=== PATIENT | female | born 1950 | race Caucasian/White ===

== ENCOUNTER 2022-06-01 19:39 | Inpatient (IN) ==
[2022-06-01] MEDS ORDERED: IOPAMIDOL 100 ML BOTTLE IV ONE (19:40)
[2022-06-01] MEDS ORDERED: diphenhydrAMINE 50 MG/ML VIAL IV ONE (20:47)
[2022-06-01 21:23] LABS: POC Calcium, Ionized 1.14 (1.16-1.32); POC Creatinine 1.5 (0.6-1.2); POC Potassium 3.8 (3.3-5.1)
[2022-06-01] MEDS ORDERED: ALBUTEROL SULFATE 2.5 MG/3 ML NEBULIZER NEB ONE (21:36)
[2022-06-01] MEDS ORDERED: IPRATROPIUM/ALBUTEROL 3 ML AMPUL.NEB NEB ONE (21:36)
[2022-06-01 21:42] LABS: Basophils # (Auto) 0.13 K/mcL (0.00-0.30); Eosinophils # (Auto) 0.36 K/mcL (0.00-0.70); Eosinophils % (Auto) 2.7 % (0.0-7.0); Hematocrit 27.4 % (34.1-44.9); Hemoglobin 8.7 g/dL (11.2-15.7); Lymphocytes % (Auto) 8.2 % (15.5-49.0); Mean Cell Volume 90.1 fL (80.0-100.0); Mean Corpuscular HGB Conc 31.8 g/dL (31.0-36.0); Mean Platelet Volume 10.7 fL (8.8-12.5); Monocytes # (Auto) 1.52 K/mcL (0.10-0.90); Monocytes % (Auto) 11.3 % (1.0-12.0); Neutrophils % (Auto) 75.9 % (38.0-78.0); Platelet Count 400 K/mcL (140-440); RBC 3.04 M/mcL (3.59-5.38); Red Cell Distribution Width 14.7 % (11.5-14.5); WBC 13.5 K/mcL (4.5-11.0)
[2022-06-01] MEDS ORDERED: methylPREDNISolone SOD SUCC 125 MG/2 ML VIAL IV ONE (22:05)
[2022-06-01] MEDS ORDERED: 0.9 % SODIUM CHLORIDE 500 ML IV ONE (22:07)
[2022-06-01] MEDS ORDERED: NALOXONE HCL 0.4 MG/ML VIAL IV ONE (22:13)
[2022-06-01] MEDS ORDERED: EPINEPHrine 1 MG/ML VIAL NEB ONE (22:18)
[2022-06-01] MEDS ORDERED: LORazepam 2 MG/ML VIAL IV ONE ×2 (22:28→22:47)
--- NOTE | 2022-06-01 23:04 | Emergency Department Note ---
SOB HPI General Chief Complaint: Shortness of Breath/Dyspnea Stated Complaint: SOB Time Seen by Provider: 06/01/22 19:43 Source: patient Mode of arrival: ambulatory Limitations: no limitations History of Present Illness HPI Narrative: Narrative: Patient presents to the ED with complaints of shortness of breath. She states she feels she cannot get a full deep breath in. She arrived via EMS on 3 L oxygen via nasal cannula. She denies cough, sputum production, cardiac chest pain, heart palpitations, hemoptysis, pain rating to her left arm or neck, nausea or vomiting. Patient states that she has been here several times the last couple days for back pain. She states she does not have any back pain at this time but she is just short of breath. Patient denies any other alleviating or aggravating factors. Related Data Home Medications Medication Instructions Recorded Confirmed amiodarone 100 mg tablet 100 mg PO HS 08/14/18 11/08/20 apixaban 2.5 mg tablet 5 mg PO BID 08/14/18 11/08/20 atorvastatin 80 mg tablet 80 mg PO HS 08/14/18 11/08/20 bupropion HCl 300 mg 24 hr tablet, 300 mg PO DAILY 08/14/18 04/30/19 extended release levothyroxine 100 mcg tablet 100 mcg PO DAILY 08/14/18 04/30/19 losartan 50 mg tablet 50 mg PO DAILY 08/14/18 04/30/19 montelukast 10 mg tablet 10 mg PO HS 08/14/18 11/08/20 nortriptyline 50 mg capsule 50 mg PO HS 08/14/18 11/08/20 spironolactone 25 mg tablet 25 mg PO DAILY 08/14/18 11/08/20 buprenorphine 8 mg-naloxone 2 mg 0.5 tab sublingual TID 10/02/18 11/08/20 sublingual tablet amoxicillin 875 mg-potassium 1 tab PO BID 04/30/19 04/30/19 clavulanate 125 mg tablet baclofen 10 mg tablet 10 mg PO TIDP PRN Pain 04/30/19 04/30/19 bupropion HCl (smoking deter) 150 150 mg PO DAILY 04/30/19 04/30/19 mg tablet,12 hr sustained-release(smoking deterrent) buspirone 5 mg tablet 5 mg PO BID 04/30/19 04/30/19 cefdinir 300 mg capsule 300 mg PO BID 04/30/19 04/30/19 clonidine HCl 0.1 mg tablet 0.1 mg PO DAILYP PRN Hypertension 04/30/19 04/30/19 duloxetine 60 mg capsule,delayed 60 mg PO DAILY 04/30/19 11/08/20 release sprinkle hydrocodone 7.5 mg-acetaminophen 1 tab PO Q6HP PRN Pain 04/30/19 04/30/19 325 mg tablet ibuprofen 600 mg tablet 600 mg PO Q6HP PRN Pain 04/30/19 04/30/19 ketorolac 0.4 % eye drops 1 gtt BOTH EYES PRN PRN Dry Eyes 04/30/19 04/30/19 lisinopril 10 mg tablet 10 mg PO DAILY 04/30/19 04/30/19 neomycin 3.5 mg/g-polymyxin B 1 dose BOTH EYES QPM PRN Dry Eyes 04/30/19 04/30/19 10,000 unit/g-dexameth 0.1 % eye oint omeprazole 20 mg capsule,delayed 20 mg PO DAILY 04/30/19 11/08/20 release ropinirole 0.25 mg tablet 0.25 mg PO QHS 04/30/19 04/30/19 torsemide 20 mg tablet 20 mg PO DAILY 04/30/19 04/30/19 trazodone 150 mg tablet 150 mg PO HS 04/30/19 04/30/19 amlodipine 5 mg tablet 5 mg PO QDAY 11/08/20 11/08/20 buspirone 7.5 mg tablet 7.5 mg PO BID 11/08/20 11/08/20 celecoxib 200 mg capsule 200 mg PO BID PRN 11/08/20 11/08/20 docusate sodium 100 mg capsule 100 mg PO QDAY PRN 11/08/20 11/08/20 fluticasone propionate 50 1 spray intranasal QDAY 11/08/20 11/08/20 mcg/actuation nasal spray,suspension furosemide 20 mg tablet 20 mg PO QDAY 11/08/20 11/08/20 hydroxyzine HCl 50 mg tablet See Rx Instructions PO Q8HP PRN 11/08/20 11/08/20 Anxiety levothyroxine 100 mcg tablet 100 mcg PO QDAY 11/08/20 11/08/20 loratadine 10 mg tablet 10 mg PO QDAY 11/08/20 11/08/20 memantine 5 mg tablet 10 mg PO BID 11/08/20 11/08/20 minoxidil 2 % topical solution 1 ml topical BID 11/08/20 11/08/20 ondansetron HCl 4 mg tablet 4 mg PO Q8H PRN 11/08/20 11/08/20 psyllium husk [Fiber (psyllium See Rx Instructions PO .COMPLEX 11/08/20 11/08/20 husk)] ropinirole 2 mg tablet 2 mg PO QHS 11/08/20 11/08/20 sennosides 8.6 mg tablet (senna) See Rx Instructions PO QDAY 11/08/20 11/08/20 sodium chloride 1 gram tablet 1,000 mg PO QDAY 11/08/20 11/08/20 Previous Rx's Medication Instructions Recorded hydrocodone 5 mg-acetaminophen 325 1 tab PO Q4H PRN pain #10 tabs 05/22/22 mg tablet baclofen 10 mg tablet 10 mg PO TID PRN spasms #30 tabs 06/01/22 lidocaine 5 % topical patch 1 patch topical QDAY #15 ea 06/01/22 (Lidoderm) Allergies Allergy/AdvReac Type Severity Reaction Status Date / Time azithromycin [From Zithromax] Allergy Severe Swelling Verified 06/01/22 08:51 pregabalin [From Lyrica] Allergy Severe Unknown Verified 06/01/22 08:51 flu vaccine AdvReac Other Uncoded 08/14/18 07:49 Review of Systems ROS ROS Narrative: Narrative: PFSH Narrative Patient History Narrative: Narrative: Medical/Surgical/Family History All Active Problems (Updated 06/02/22 @ 01:59 by Joseph Ramirez MD) CHF exacerbation (Acute) Restless legs (Acute) Right rib fracture (Acute) Lumbar back pain (Acute) Low back pain (Acute) Acute respiratory failure with hypoxia (Acute) Pleural effusion on right (Acute) Left lower lobe pneumonia (Acute) Sepsis (Acute) Chronic pain (Chronic) Pain in thoracic spine (Chronic) Disc degeneration, 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, lumbar region (Chronic) Dysphagia (Chronic) History of shingles (Chronic) History of pulmonary embolism (Chronic) Opioid dependence in remission (Chronic) Onychomycosis of toenail (Chronic) Primary osteoarthritis, right shoulder (Chronic) Osteopenia (Chronic) Raynaud's syndrome without gangrene (Chronic) Restless legs (Chronic) Frequent falls (Chronic) Generalized anxiety disorder (Chronic) Major depressive disorder (Chronic) Chronic insomnia (Chronic) Sleep apnea (Chronic) Anemia (Chronic) Hyponatremia (Chronic) Tinnitus, bilateral (Chronic) Essential hypertension (Chronic) Paroxysmal atrial fibrillation (Chronic) Chronic congestive heart failure (Chronic) Alternating constipation and diarrhea (Chronic) Bilateral lower extremity edema (Chronic) Memory deficit (Chronic) Arthritis of hand (Chronic) Other alopecia areata (Chronic) Other allergic rhinitis (Chronic) Morbid obesity due to excess calories (Chronic) Body mass index 40.0-44.9, adult (Chronic) Benign essential tremor (Chronic) Lumbar radiculopathy (Chronic) Congestive heart failure (Chronic) Hypothyroidism (Chronic) H/O partial thyroidectomy (Chronic) Hyperlipidemia (Chronic) Low back pain (Chronic) Medication adverse effect (Chronic) Hypotension (Chronic) Hypokalemia (Chronic) Exacerbation of chronic back pain (Chronic) UTI (urinary tract infection) (Chronic) Strain of lumbar region (Chronic) Medical History Alternating constipation and diarrhea Anemia Arthritis of hand Benign essential tremor Bilateral lower extremity edema Body mass index 40.0-44.9, adult Chronic congestive heart failure Chronic insomnia Chronic pain Congestive heart failure Disc degeneration, lumbosacral Dysphagia Essential hypertension Exacerbation of chronic back pain Frequent falls Generalized anxiety disorder History of pulmonary embolism History of shingles Hyperlipidemia Hypokalemia Hyponatremia Hypotension Hypothyroidism Low back pain Lumbar radiculopathy Major depressive disorder Medication adverse effect Memory deficit Morbid obesity due to excess calories Onychomycosis of toenail Opioid dependence in remission Osteopenia Other allergic rhinitis Other alopecia areata Pain in thoracic spine Paroxysmal atrial fibrillation Primary osteoarthritis, right shoulder Raynaud's syndrome without gangrene Restless legs Sleep apnea Spondylosis without myelopathy or radiculopathy, lumbar region Strain of lumbar region Tinnitus, bilateral UTI (urinary tract infection) Surgical History H/O partial thyroidectomy History of bilateral knee replacement History of foot surgery Toes straightened right and left foot History of repair of right rotator cuff History of surgery Right achilles tendon History of surgery 03/21 RFTC Bilat L3-S1 w/sed 03/30/1802/17 MBB #2 Bilat L3-S1 w/sed 02/02/1801/18 MBB #1 Bilat L3-S1 w/sed 01/01/1810/18 TF TAPAN #1 L5-S1 w/sed 10/15/2017 History of tonsillectomy Family History Mother Heart disease Breast cancer Father , in his 50's from alcoholism Alcoholism Social History Smoking Status: Former smoker Alcohol Intake Frequency: does not drink Substance Use: does not use Exam Narrative Narrative: Narrative: General Limitations: no limitations General appearance: Present appears intoxicated, grimacing and in distress Head Head: Present normocephalic and normal inspection Eye Eye: Present PERRL and EOMI ENT ENT: Present normal oropharynx and mucous membranes moist Chest Chest: Present normal inspection; Absent tenderness Respiratory Respiratory: Present respiratory distress, wheezes and accessory muscle use Cardiovascular Cardiovascular: Present regular rate and normal rhythm Adbominal Abdominal: Present soft; Absent tenderness Extremities Extremities: Present normal inspection and normal capillary refill Back Back: Absent CVA tenderness (R) or CVA tenderness (L) Neurological Neurological: Present alert and oriented X3 Psychiatric Psychiatric: Present normal affect and normal mood Skin Skin: Present warm (WNL) and intact Course Course Course Narrative: Patient was evaluated for shortness of breath. Patient was initially on 3 L of oxygen via nasal cannula. We were able to wean her down to room air when she was breathing comfortably for a while. She was negative for COVID and flu which was considered but ruled out with a negative test. Chest x-ray obtained with image reviewed myself which showed a right pleural effusion and a possible left lower lobe pneumonia. Lab work was obtained and reviewed myself which showed elevated white cell count qualifying for leukocytosis. BNP elevated at 1400. Renal function was intact patient's pH was slightly decreased. Patient lactic acid within normal limits. Patient procalcitonin was severely elevated indicating possible infection. She was tachycardic. Blood cultures were obtained and patient was given IV Rocephin and azithromycin for suspected pneumonia. Patient does meet sepsis criteria with tachycardia, leukocytosis and source of infection. Patient became increasingly more agitated. Her oxygen saturation dropped to 88% on room air so she was placed back on supplemental oxygen via nasal cannula. Patient became more more agitated and restless. She started complaining of worsening shortness of breath. She was given some Benadryl for agitation which did not help. We then tried IV Ativan patient was still agitated and pulling at her IV site. Patient developed an audible wheeze. She was given racemic epi and breathing treatment with no improvement in her overall respiratory status. Patient expressed desire to be a full code. I did give her some Narcan for concern about possible drug overdose with hydrocodone with no effect. Patient's respiratory status did continue to decline so decision was made to intubate the patient. RSI was achieved with IV etomidate and IV rocuronium, patient was successfully intubated. Patient was placed on a Versed drip IV. Patient's D-dimer was elevated so CT of the chest was obtained with negative for PE but did show a large right pleural effusion in the left lower lobe pneumonia. Patient was given IV Lasix for the pleural effusion and CHF exacerbation. Bautista catheter was placed. Central line was placed successfully. Patient's UA was unremarkable. Case was discussed with hospitalist who has agreed to admit the patient for respiratory failure secondary to CHF exacerbation and pneumonia. Reevaluation(s) Reevaluation #1: Patient has become more tachypneic and tachycardic. She is also has increased work of breathing with some apneic spells. She has become increasingly more agitated and restless unable to sit still because she states she cannot feel comfortable due to her shortness of breath. Time: 21:01 Consultations Consultation #1: Case discussed with hospitalist who has agreed to admit the patient. Time: :01 Vital Signs Vital signs: Vital Signs Temperature 97.8 F 06/01/22 19:49 Pulse Rate 85 06/01/22 19:49 Respiratory Rate 18 06/01/22 19:49 Blood Pressure 124/90 06/01/22 19:49 Pulse Oximetry (%) 93 06/01/22 19:49 Oxygen Delivery Method Room Air 06/01/22 19:49 Temperature 97.5 F 06/02/22 01:47 Pulse Rate 98 H 06/02/22 01:47 Respiratory Rate 22 06/02/22 01:47 Blood Pressure 119/79 06/02/22 01:47 Pulse Oximetry (%) 94 06/02/22 01:47 Oxygen Delivery Method Oxymask 06/01/22 22:38 Oxygen Flow Rate (L/min) 8 06/01/22 22:38 Procedures CVP Indication: Venous access and Hemodynamically unstable Location: IJ Right / Left: Right Preparation: Sterile field and Chlorhexidine Anesthesia: None Post Procedure: Adequate blood return, Adequate fluid flow and Equal bilateral breath sounds Patient Tolerated: Well Complications: None Intubation Time out performed: Yes sedative: Etomidate Mg Given: 20 paralytic: Rocuronium Mg Given: 100 Laryngoscope: fiber optic video scope Assist Device Used: fiber optic device ET Tube Size: 7.5 ET Tube Uncuffed: Yes Tube Secured Depth (cm): 23 Tube Secured Location: lips Tube Placement Confirmation: visualized tube passing through cords, equal breath sounds bilaterally, no breath sounds over epigastrium and confirmation by capnometry Patient Tolerated Procedure: well and no complications Intubation Complications: none MDM MDM Narrative Medical decision making narrative: Narrative: Sepsis Sepsis Identified: Yes Time Zero: 2300 Differential Diagnosis Differential Diagnosis: Pneumonia, viral illness, CHF exacerbation, sepsis Lab Data Lab results reviewed: Yes I reviewed the patient's lab results. 06/01/22 21:06 Labs: Lab Results 06/01/22 06/01/22 06/01/22 Range/Units 21:06 21:06 21:10 WBC 13.5 H (4.5-11.0) K/mcL RBC 3.04 L (3.59-5.38) M/mcL Hgb 8.7 L (11.2-15.7) g/dL Hct 27.4 L (34.1-44.9) % POC Hct 27.0 L (36-48) MCV 90.1 (80.0-100.0) fL MCH 28.6 (26.0-34.0) pg MCHC 31.8 (31.0-36.0) g/dL RDW 14.7 H (11.5-14.5) % Plt Count 400 (140-440) K/mcL MPV 10.7 (8.8-12.5) fL Immature Gran % (Auto) 0.9 H (0.0-0.5) % Neut % (Auto) 75.9 (38.0-78.0) % Lymph % (Auto) 8.2 L (15.5-49.0) % [place] % (Auto) 11.3 (1.0-12.0) % Eos % (Auto) 2.7 (0.0-7.0) % Baso % (Auto) 1.0 (0.0-2.0) % Lymph # (Auto) 1.10 L (1.50-4.80) K/mcL [place] # (Auto) 1.52 H (0.10-0.90) K/mcL Eos # (Auto) 0.36 (0.00-0.70) K/mcL Baso # (Auto) 0.13 (0.00-0.30) K/mcL Immature Gran # 0.12 H (0.00-0.05) K/mcl Absolute Neutrophils 10.24 H (1.80-8.00) K/mcL D-Dimer 1.21 H (0.27-0.50) ug/mL POC VBG pH (7.32-7.42) POC VBG pCO2 at Temp (41-51) POC VBG pO2 (25-40) POC VBG HCO3 (24-28) POC VBG Total CO2 (25-29) POC Venous O2 Sat (40-70) POC VBG Base Excess (-2-2) VBG Lactic Acid (0.5-2) POC Sodium 132 L (133-145) POC Potassium 3.8 (3.3-5.1) POC Chloride 104 (96-108) POC Total CO2 21.0 L (22-30) POC BUN 30 H (6-20) POC Creatinine 1.5 H (0.6-1.2) POC Glucose 107 H (70-105) POC WB Ioniz Calcium 1.14 L (1.16-1.32) NT-Pro-B Natriuret Pep (<125.0) pg/mL Procalcitonin (<0.10) ng/mL 06/01/22 06/01/22 06/01/22 Range/Units 21:17 22:43 23:31 WBC (4.5-11.0) K/mcL RBC (3.59-5.38) M/mcL Hgb (11.2-15.7) g/dL Hct (34.1-44.9) % POC Hct (36-48) MCV (80.0-100.0) fL MCH (26.0-34.0) pg MCHC (31.0-36.0) g/dL RDW (11.5-14.5) % Plt Count (140-440) K/mcL MPV (8.8-12.5) fL Immature Gran % (Auto) (0.0-0.5) % Neut % (Auto) (38.0-78.0) % Lymph % (Auto) (15.5-49.0) % [place] % (Auto) (1.0-12.0) % Eos % (Auto) (0.0-7.0) % Baso % (Auto) (0.0-2.0) % Lymph # (Auto) (1.50-4.80) K/mcL [place] # (Auto) (0.10-0.90) K/mcL Eos # (Auto) (0.00-0.70) K/mcL Baso # (Auto) (0.00-0.30) K/mcL Immature Gran # (0.00-0.05) K/mcl Absolute Neutrophils (1.80-8.00) K/mcL D-Dimer (0.27-0.50) ug/mL POC VBG pH 7.31 L 7.28 L (7.32-7.42) POC VBG pCO2 at Temp 37.3 L 36.8 L (41-51) POC VBG pO2 33 112 H (25-40) POC VBG HCO3 18.8 L 17.3 L (24-28) POC VBG Total CO2 20.0 L 18.0 L (25-29) POC Venous O2 Sat 59.0 98.0 H (40-70) POC VBG Base Excess -8.0 L -9.0 L (-2-2) VBG Lactic Acid 0.8 0.8 (0.5-2) POC Sodium (133-145) POC Potassium (3.3-5.1) POC Chloride (96-108) POC Total CO2 (22-30) POC BUN (6-20) POC Creatinine (0.6-1.2) POC Glucose (70-105) POC WB Ioniz Calcium (1.16-1.32) NT-Pro-B Natriuret Pep (<125.0) pg/mL Procalcitonin 41.43 H (<0.10) ng/mL 06/02/22 Range/Units 01:01 WBC (4.5-11.0) K/mcL RBC (3.59-5.38) M/mcL Hgb (11.2-15.7) g/dL Hct (34.1-44.9) % POC Hct (36-48) MCV (80.0-100.0) fL MCH (26.0-34.0) pg MCHC (31.0-36.0) g/dL RDW (11.5-14.5) % Plt Count (140-440) K/mcL MPV (8.8-12.5) fL Immature Gran % (Auto) (0.0-0.5) % Neut % (Auto) (38.0-78.0) % Lymph % (Auto) (15.5-49.0) % [place] % (Auto) (1.0-12.0) % Eos % (Auto) (0.0-7.0) % Baso % (Auto) (0.0-2.0) % Lymph # (Auto) (1.50-4.80) K/mcL [place] # (Auto) (0.10-0.90) K/mcL Eos # (Auto) (0.00-0.70) K/mcL Baso # (Auto) (0.00-0.30) K/mcL Immature Gran # (0.00-0.05) K/mcl Absolute Neutrophils (1.80-8.00) K/mcL D-Dimer (0.27-0.50) ug/mL POC VBG pH (7.32-7.42) POC VBG pCO2 at Temp (41-51) POC VBG pO2 (25-40) POC VBG HCO3 (24-28) POC VBG Total CO2 (25-29) POC Venous O2 Sat (40-70) POC VBG Base Excess (-2-2) VBG Lactic Acid (0.5-2) POC Sodium (133-145) POC Potassium (3.3-5.1) POC Chloride (96-108) POC Total CO2 (22-30) POC BUN (6-20) POC Creatinine (0.6-1.2) POC Glucose (70-105) POC WB Ioniz Calcium (1.16-1.32) NT-Pro-B Natriuret Pep 1452.0 H (<125.0) pg/mL Procalcitonin (<0.10) ng/mL Radiology Data Radiology results reviewed: Yes I reviewed the patient's radiology results. Radiology results narrative: Chest x-ray obtained with image reviewed myself, concerning for pleural effusion and pneumonia, official read pending CT of the chest obtained with image reviewed myself, negative for PE but does show right pleural effusion left lower lobe pneumonia EKG Data EKG #1: EKG attestation: Yes I reviewed and interpreted this EKG. EKG shows normal: sinus rhythm Rate: normal Rhythm: PVC's [place]/QRS: normal Heart block present: None ST segment elevation in: None ST segment depression in: None QTc: normal QRS morphology: Present normal Interpretation: no acute changes and nonspecific ST-T wave changes CC TIME Critical Care Time Critical Care Time: Yes Total Critical Care Time: 70 Attestation: 70 minutes of critical care time was utilized on this patient excluding any procedures Discharge Plan Patient/Caregiver Discharge Instructions Pt seen by THERAPIST RRT/PA only: No Clinical Impression: Acute respiratory failure with hypoxia, Pleural effusion on right Left lower lobe pneumonia Qualifiers: Pneumonia type: due to unspecified organism Qualified Code(s): J18.9 - Pneumonia, unspecified organism Sepsis Qualifiers: Sepsis type: sepsis due to unspecified organism Sepsis acute organ dysfunction status: with acute organ dysfunction Severe sepsis acute organ dysfunction type: acute respiratory failure Acute respiratory failure type: with hypoxia Severe sepsis shock status: without septic shock Qualified Code(s): A41.9 - Sepsis, unspecified organism Patient Disposition: Xfer As Inpt ([facility]) Condition: Critical Follow up with: Wellington Rocha DO [Primary Care Provider] - Prescriptions: No Action celecoxib 200 mg capsule 200 mg PO BID PRN ropinirole 2 mg tablet 2 mg PO QHS Rx Instructions: administer 1-3 hours before bedtime furosemide 20 mg tablet 20 mg PO QDAY fluticasone propionate 50 mcg/actuation spray,suspension 1 spray intranasal QDAY Rx Instructions: administer into each nostril docusate sodium 100 mg capsule 100 mg PO QDAY PRN psyllium husk [Fiber (psyllium husk)] See Rx Instructions PO .COMPLEX Rx Instructions: 2 caps PO; amlodipine 5 mg tablet 5 mg PO QDAY memantine 5 mg tablet 10 mg PO BID levothyroxine 100 mcg tablet 100 mcg PO QDAY sodium chloride 1 gram tablet 1,000 mg PO QDAY sennosides [senna] 8.6 mg tablet See Rx Instructions PO QDAY Rx Instructions: 8.6mg, 1-2 tabs PO daily; minoxidil 2 % solution 1 ml topical BID ondansetron HCl 4 mg tablet 4 mg PO Q8H PRN loratadine 10 mg tablet 10 mg PO QDAY buspirone 7.5 mg tablet 7.5 mg PO BID buprenorphine-naloxone 8-2 mg tablet, sublingual 0.5 tab SUBLINGUAL TID losartan 50 MG tablet 50 mg PO DAILY spironolactone 25 MG tablet 25 mg PO DAILY levothyroxine 100 MCG tablet 100 mcg PO DAILY bupropion HCl 300 MG tablet extended release 24 hr 300 mg PO DAILY apixaban 2.5 MG tablet 5 mg PO BID atorvastatin 80 MG tablet 80 mg PO HS montelukast 10 MG tablet 10 mg PO HS nortriptyline 50 MG capsule 50 mg PO HS amiodarone 100 MG tablet 100 mg PO HS buspirone 5 MG tablet 5 mg PO BID clonidine HCl 0.1 MG tablet 0.1 mg PO DAILYP PRN (Reason: Hypertension) torsemide 20 MG tablet 20 mg PO DAILY ropinirole 0.25 MG tablet 0.25 mg PO QHS baclofen 10 MG tablet 10 mg PO TIDP PRN (Reason: Pain) hydrocodone-acetaminophen 1 TAB tablet 1 tab PO Q6HP PRN (Reason: Pain) trazodone 150 MG tablet 150 mg PO HS lisinopril 10 MG tablet 10 mg PO DAILY omeprazole 20 MG capsule,delayed release(DR/EC) 20 mg PO DAILY ibuprofen 600 MG tablet 600 mg PO Q6HP PRN (Reason: Pain) cefdinir 300 MG capsule 300 mg PO BID amoxicillin-pot clavulanate 875 MG tablet 1 tab PO BID neomycin-polymyxin B-dexameth 3.5 GM ointment 1 dose BOTH EYES QPM PRN (Reason: Dry Eyes) ketorolac 5 ML drops 1 gtt BOTH EYES PRN PRN (Reason: Dry Eyes) bupropion HCl (smoking deter) 150 MG tablet extended release 12 hr 150 mg PO DAILY duloxetine 60 MG capsule, delayed rel sprinkle 60 mg PO DAILY hydroxyzine HCl 50 mg tablet See Rx Instructions PO Q8HP PRN (Reason: Anxiety) Rx Instructions: 50mg, 1/2 tab PO every 8 hours as needed PRN; hydrocodone-acetaminophen 5-325 mg tablet 1 tab PO Q4H PRN (Reason: pain) Qty: 10 0RF baclofen 10 mg tablet 10 mg PO TID PRN (Reason: spasms) Qty: 30 0RF lidocaine [Lidoderm] 5 % adhesive patch,medicated 1 patch topical QDAY Qty: 15 0RF Rx Instructions: leave on most painful area for up to 12 hrs
[2022-06-01] MEDS ORDERED: MIDAZOLAM HCL 50 MG in 0.9 % SODIUM CHLORIDE 90 ML IV SCH (23:15)
[2022-06-01] MEDS ORDERED: MIDAZOLAM HCL 50 MG/10 ML VIAL IV ONE (23:21)
[2022-06-02] MEDS ORDERED: cefTRIAXone 2 GM in DEXTROSE 5% IN WATER 50 ML IV ONE (00:10)
[2022-06-02] MEDS ORDERED: FUROSEMIDE 100 MG/10 ML VIAL IV ONE (00:59)
--- NOTE | 2022-06-02 01:53 | Internal Med History&Physical ---
HPI History of Present Illness Patient information: Note initiated : 06/02/22 at 1:51 am Service Date, if different from initiated Date: [] Patient: Johana Jimenez a 72 y/o F admitted on for Shortness of breath. Chief Complaint: [shortness of breath] Chief complaint: shortness of breath History of present illness: Ms. Jimenez is a 72 year old F history of congestive heart failure, chronic back pain, proximal atrial fibrillation's, essential hypertensions, mixed dyslipidemia, hypothyroidism, presenting with shortness of breath. The following history is limited by clinical situations because by the time I arrived, she is already intubated and cannot give me any clinical history. According to report by the ED, the patient's became increasingly hypoxic, with increased work of breathing, and therefore she was being intubated in the ED. Significant for current clinical findings including imaging with both chest x- ray and CT angiogram of the lungs showing negative for pulmonary embolism but positive for parenchymal infiltrates as well as cardiomegaly and pleural effusion suggesting the presence of the pneumonia as well as consider heart failure with exacerbations. Labs significant for negative screening test for COVID pneumonia/influenza AMB/RSV. Positive for leukocytosis with WBC 13.5. Venous blood gas showing acidosis with pH 7.28, PCO2 and PO2 36.8 and 112, respectively. Bicarb 17.3. BNP 1452, procalcitonin level 41.43. Serum lactic acid 0.8. D-dimer elevated at 1.21. Review of Systems ROS unobtainable: due to endotracheal tube PFSH PFSH All Active Problems (Updated 06/02/22 @ 01:59 by Joseph Ramirez MD) CHF exacerbation (Acute) Restless legs (Acute) Right rib fracture (Acute) Lumbar back pain (Acute) Low back pain (Acute) Acute respiratory failure with hypoxia (Acute) Pleural effusion on right (Acute) Left lower lobe pneumonia (Acute) Sepsis (Acute) Chronic pain (Chronic) Pain in thoracic spine (Chronic) Disc degeneration, 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, lumbar region (Chronic) Dysphagia (Chronic) History of shingles (Chronic) History of pulmonary embolism (Chronic) Opioid dependence in remission (Chronic) Onychomycosis of toenail (Chronic) Primary osteoarthritis, right shoulder (Chronic) Osteopenia (Chronic) Raynaud's syndrome without gangrene (Chronic) Restless legs (Chronic) Frequent falls (Chronic) Generalized anxiety disorder (Chronic) Major depressive disorder (Chronic) Chronic insomnia (Chronic) Sleep apnea (Chronic) Anemia (Chronic) Hyponatremia (Chronic) Tinnitus, bilateral (Chronic) Essential hypertension (Chronic) Paroxysmal atrial fibrillation (Chronic) Chronic congestive heart failure (Chronic) Alternating constipation and diarrhea (Chronic) Bilateral lower extremity edema (Chronic) Memory deficit (Chronic) Arthritis of hand (Chronic) Other alopecia areata (Chronic) Other allergic rhinitis (Chronic) Morbid obesity due to excess calories (Chronic) Body mass index 40.0-44.9, adult (Chronic) Benign essential tremor (Chronic) Lumbar radiculopathy (Chronic) Congestive heart failure (Chronic) Hypothyroidism (Chronic) H/O partial thyroidectomy (Chronic) Hyperlipidemia (Chronic) Low back pain (Chronic) Medication adverse effect (Chronic) Hypotension (Chronic) Hypokalemia (Chronic) Exacerbation of chronic back pain (Chronic) UTI (urinary tract infection) (Chronic) Strain of lumbar region (Chronic) Medical History Alternating constipation and diarrhea Anemia Arthritis of hand Benign essential tremor Bilateral lower extremity edema Body mass index 40.0-44.9, adult Chronic congestive heart failure Chronic insomnia Chronic pain Congestive heart failure Disc degeneration, lumbosacral Dysphagia Essential hypertension Exacerbation of chronic back pain Frequent falls Generalized anxiety disorder History of pulmonary embolism History of shingles Hyperlipidemia Hypokalemia Hyponatremia Hypotension Hypothyroidism Low back pain Lumbar radiculopathy Major depressive disorder Medication adverse effect Memory deficit Morbid obesity due to excess calories Onychomycosis of toenail Opioid dependence in remission Osteopenia Other allergic rhinitis Other alopecia areata Pain in thoracic spine Paroxysmal atrial fibrillation Primary osteoarthritis, right shoulder Raynaud's syndrome without gangrene Restless legs Sleep apnea Spondylosis without myelopathy or radiculopathy, lumbar region Strain of lumbar region Tinnitus, bilateral UTI (urinary tract infection) Surgical History H/O partial thyroidectomy History of bilateral knee replacement History of foot surgery Toes straightened right and left foot History of repair of right rotator cuff History of surgery Right achilles tendon History of surgery 03/21 RFTC Bilat L3-S1 w/sed 1/28/19 12/18 MBB #2 Bilat L3-S1 w/sed 02/02/1801/18 MBB #1 Bilat L3-S1 w/sed 01/01/1810/18 TF TAPAN #1 L5-S1 w/sed 10/15/2017 History of tonsillectomy Family History Mother Heart disease Breast cancer Father , in his 50's from alcoholism Alcoholism Social History (Updated 11/08/20 @ 14:26 by Eveline Mcghee) marital status: occupational status: retired physical activity: none smoking status: Former smoker alcohol intake frequency: does not drink substance use type: does not use additional history: Quit smoking in 1972. MEDS/ALLERGIES Home Medications and Allergies Home Medications Medication Instructions Recorded Confirmed Type amiodarone 100 mg tablet 100 mg PO HS 08/14/18 11/08/20 History apixaban 2.5 mg tablet 5 mg PO BID 08/14/18 11/08/20 History atorvastatin 80 mg tablet 80 mg PO HS 08/14/18 11/08/20 History bupropion HCl 300 mg 24 hr tablet, 300 mg PO DAILY 08/14/18 04/30/19 History extended release levothyroxine 100 mcg tablet 100 mcg PO DAILY 08/14/18 04/30/19 History losartan 50 mg tablet 50 mg PO DAILY 08/14/18 04/30/19 History montelukast 10 mg tablet 10 mg PO HS 08/14/18 11/08/20 History nortriptyline 50 mg capsule 50 mg PO HS 08/14/18 11/08/20 History spironolactone 25 mg tablet 25 mg PO DAILY 08/14/18 11/08/20 History buprenorphine 8 mg-naloxone 2 mg 0.5 tab sublingual TID 10/02/18 11/08/20 History sublingual tablet amoxicillin 875 mg-potassium 1 tab PO BID 04/30/19 04/30/19 History clavulanate 125 mg tablet baclofen 10 mg tablet 10 mg PO TIDP PRN Pain 04/30/19 04/30/19 History bupropion HCl (smoking deter) 150 150 mg PO DAILY 04/30/19 04/30/19 History mg tablet,12 hr sustained-release(smoking deterrent) buspirone 5 mg tablet 5 mg PO BID 04/30/19 04/30/19 History cefdinir 300 mg capsule 300 mg PO BID 04/30/19 04/30/19 History clonidine HCl 0.1 mg tablet 0.1 mg PO DAILYP PRN Hypertension 04/30/19 04/30/19 History duloxetine 60 mg capsule,delayed 60 mg PO DAILY 04/30/19 11/08/20 History release sprinkle hydrocodone 7.5 mg-acetaminophen 1 tab PO Q6HP PRN Pain 04/30/19 04/30/19 History 325 mg tablet ibuprofen 600 mg tablet 600 mg PO Q6HP PRN Pain 04/30/19 04/30/19 History ketorolac 0.4 % eye drops 1 gtt BOTH EYES PRN PRN Dry Eyes 04/30/19 04/30/19 History lisinopril 10 mg tablet 10 mg PO DAILY 04/30/19 04/30/19 History neomycin 3.5 mg/g-polymyxin B 1 dose BOTH EYES QPM PRN Dry Eyes 04/30/19 04/30/19 History 10,000 unit/g-dexameth 0.1 % eye oint omeprazole 20 mg capsule,delayed 20 mg PO DAILY 04/30/19 11/08/20 History release ropinirole 0.25 mg tablet 0.25 mg PO QHS 04/30/19 04/30/19 History torsemide 20 mg tablet 20 mg PO DAILY 04/30/19 04/30/19 History trazodone 150 mg tablet 150 mg PO HS 04/30/19 04/30/19 History amlodipine 5 mg tablet 5 mg PO QDAY 11/08/20 11/08/20 History buspirone 7.5 mg tablet 7.5 mg PO BID 11/08/20 11/08/20 History celecoxib 200 mg capsule 200 mg PO BID PRN 11/08/20 11/08/20 History docusate sodium 100 mg capsule 100 mg PO QDAY PRN 11/08/20 11/08/20 History fluticasone propionate 50 1 spray intranasal QDAY 11/08/20 11/08/20 History mcg/actuation nasal spray,suspension furosemide 20 mg tablet 20 mg PO QDAY 11/08/20 11/08/20 History hydroxyzine HCl 50 mg tablet See Rx Instructions PO Q8HP PRN 11/08/20 11/08/20 History Anxiety levothyroxine 100 mcg tablet 100 mcg PO QDAY 11/08/20 11/08/20 History loratadine 10 mg tablet 10 mg PO QDAY 11/08/20 11/08/20 History memantine 5 mg tablet 10 mg PO BID 11/08/20 11/08/20 History minoxidil 2 % topical solution 1 ml topical BID 11/08/20 11/08/20 History ondansetron HCl 4 mg tablet 4 mg PO Q8H PRN 11/08/20 11/08/20 History psyllium husk [Fiber (psyllium See Rx Instructions PO .COMPLEX 11/08/20 11/08/20 History husk)] ropinirole 2 mg tablet 2 mg PO QHS 11/08/20 11/08/20 History sennosides 8.6 mg tablet (senna) See Rx Instructions PO QDAY 11/08/20 11/08/20 History sodium chloride 1 gram tablet 1,000 mg PO QDAY 11/08/20 11/08/20 History hydrocodone 5 mg-acetaminophen 325 1 tab PO Q4H PRN pain #10 tabs 05/22/22 Rx mg tablet baclofen 10 mg tablet 10 mg PO TID PRN spasms #30 tabs 06/01/22 Rx lidocaine 5 % topical patch 1 patch topical QDAY #15 ea 06/01/22 Rx (Lidoderm) Allergies Allergy/AdvReac Type Severity Reaction Status Date / Time azithromycin [From Zithromax] Allergy Severe Swelling Verified 06/01/22 08:51 pregabalin [From Lyrica] Allergy Severe Unknown Verified 06/01/22 08:51 flu vaccine AdvReac Other Uncoded 08/14/18 07:49 EXAM Constitutional Vitals: Temp Pulse Resp BP Pulse Ox O2 Del Method O2 Flow Rate 36.3 C 95 H 20 125/48 94 Oxymask 8 06/02/22 01:37 06/02/22 01:37 06/02/22 01:37 06/02/22 01:31 06/02/22 01:37 06/01/22 22:38 06/01/22 22:38 General appearance: morbidly obese Exam: sedated for mechanical ventilation Head Head exam: Present atraumatic and normocephalic Eye Additional comments: closed ENT ENT exam: Present mucous membranes moist, normal exam and normal external ear exam Additional comments: ET tube in place Neck Neck exam: Present normal inspection; Absent lymphadenopathy, tenderness or thyromegaly Respiratory Respiratory exam: Present decreased breath sounds and rhonchi; Absent accessory muscle use, respiratory distress or wheezes Cardiovascular Cardiovascular exam: Present irregular rhythm and tachycardia; Absent JVD GI/Abdominal GI/Abdominal exam: Present normal bowel sounds and soft; Absent organomegaly or tenderness Additional comments: Bautista catheter in place Extremities Exam Extremities exam: Present full ROM, normal capillary refill and normal inspection; Absent tenderness Neurological Exam Neurological exam: Absent motor sensory deficit Additional comments: sedated for mechanical ventilation Psychiatric Psychiatric exam: Present normal affect and normal mood; Absent anxious or dep ressed Skin Skin exam: Present dry and intact DATA Data Completed and Pending Labs: Labs from last 24 hours 06/02/22 06/01/22 06/01/22 01: 23:31 22:43 WBC RBC Hgb Hct POC Hct MCV MCH MCHC RDW Plt Count MPV Immature Gran % (Auto) Neut % (Auto) Lymph % (Auto) Levy % (Auto) Eos % (Auto) Baso % (Auto) Lymph # (Auto) Levy # (Auto) Eos # (Auto) Baso # (Auto) Immature Gran # Absolute Neutrophils D-Dimer POC VBG pH 7.28 L POC VBG pCO2 at Temp 36.8 L POC VBG pO2 112 H POC VBG HCO3 17.3 L POC VBG Total CO2 18.0 L POC Venous O2 Sat 98.0 H POC VBG Base Excess -9.0 L VBG Lactic Acid 0.8 POC Sodium POC Potassium POC Chloride POC Total CO2 POC BUN POC Creatinine POC Glucose POC WB Ioniz Calcium NT-Pro-B Natriuret Pep 1452.0 H Procalcitonin 41.43 H 06/01/22 06/01/22 06/01/22 21:17 21:10 21:06 WBC RBC Hgb Hct POC Hct 27.0 L MCV MCH MCHC RDW Plt Count MPV Immature Gran % (Auto) Neut % (Auto) Lymph % (Auto) Levy % (Auto) Eos % (Auto) Baso % (Auto) Lymph # (Auto) Levy # (Auto) Eos # (Auto) Baso # (Auto) Immature Gran # Absolute Neutrophils D-Dimer 1.21 H POC VBG pH 7.31 L POC VBG pCO2 at Temp 37.3 L POC VBG pO2 33 POC VBG HCO3 18.8 L POC VBG Total CO2 20.0 L POC Venous O2 Sat 59.0 POC VBG Base Excess -8.0 L VBG Lactic Acid 0.8 POC Sodium 132 L POC Potassium 3.8 POC Chloride 104 POC Total CO2 21.0 L POC BUN 30 H POC Creatinine 1.5 H POC Glucose 107 H POC WB Ioniz Calcium 1.14 L NT-Pro-B Natriuret Pep Procalcitonin 06/01/22 21:06 WBC 13.5 H RBC 3.04 L Hgb 8.7 L Hct 27.4 L POC Hct MCV 90.1 MCH 28.6 MCHC 31.8 RDW 14.7 H Plt Count 400 MPV 10.7 Immature Gran % (Auto) 0.9 H Neut % (Auto) 75.9 Lymph % (Auto) 8.2 L Levy % (Auto) 11.3 Eos % (Auto) 2.7 Baso % (Auto) 1.0 Lymph # (Auto) 1.10 L Levy # (Auto) 1.52 H Eos # (Auto) 0.36 Baso # (Auto) 0.13 Immature Gran # 0.12 H Absolute Neutrophils 10.24 H D-Dimer POC VBG pH POC VBG pCO2 at Temp POC VBG pO2 POC VBG HCO3 POC VBG Total CO2 POC Venous O2 Sat POC VBG Base Excess VBG Lactic Acid POC Sodium POC Potassium POC Chloride POC Total CO2 POC BUN POC Creatinine POC Glucose POC WB Ioniz Calcium NT-Pro-B Natriuret Pep Procalcitonin A/P Assessment and plan (1) Acute respiratory failure with hypoxia: Status: Acute (2) Chronic pain: Status: Chronic (3) Left lower lobe pneumonia: Status: Acute Qualifiers: Pneumonia type: due to unspecified organism Qualified Code(s): J18.9 - Pneumonia, unspecified organism (4) CHF exacerbation: Status: Acute (5) Paroxysmal atrial fibrillation: Status: Chronic (6) Essential hypertension: Status: Chronic (7) Hypothyroidism: Status: Chronic (8) Hyperlipidemia: Status: Chronic Narrative A/P Narrative: Assessment and Plans: 1. Acute respiratory failure with hypoxia secondary to community acquired pneumonia and congestive heart failure with exacerbation: Inpatient ICU Intubated for mechanical ventilation Daily sedation holiday for assessment for readiness for extubation Daily CXR Daily ABG Fentanyl drip Propofol drip Saline lock with Lasix 40mg IV BID 2D echocardiogram Hold REJI-i/ABR to make room for sedatives for intubation and mechanical ventilation No beta vicki during time of CHF exacerbation MRSA screening Serial lactic acid Procalcitonin level Blood culture cbc w/ auto diff in the morning to trend WBC Vancomycin Zosyn 2. h/o chronic back pain: Hold oral narcotics for now since patient is intubated and sedated 3. Paroxysmal atrial fibrillation: Amiodarone Lopressor IV push PRN HR>120bpm, hold if SBP<90 and/or DBP<50mmHg Eliquis 4. Essential hypertension: Holding Amlodipine/Lisinopril/Losartan to make room for sedatives for intubation and mechanical ventilation 5. Mixed dyslipidemia: Lipitor 6. Hypothyroidism: Continue thyroid replacement therapy GI ppx: Protonix IV DVT ppx: Eliquis Code status: Full Prognosis: extremely guarded Disposition: inpatient ICU Critical Care Time: 60min Time Spent With Patient Time: Total time spent is greater than 50% in coordination of care (as documented) at patient's floor/unit and/or counseling patient: Initial: Total time with patient: 55 - 74 minutes Critical Care Time: Yes Total Critical Care Time: 60
[2022-06-02] MEDS ORDERED: MIDAZOLAM 5 MG/5 ML VIAL IV ONE (03:02)
[2022-06-02] MEDS ORDERED: PROPOFOL 100 ML IV ONE (03:26)
[2022-06-02] MEDS: 0.9 % SODIUM CHLORIDE 10 ML SYRINGE IV SCH ×8 (03:30→20:05)
[2022-06-02] MEDS: PROPOFOL 1,000 MG in PREMIX 1 BAG IV SCH ×3 (03:40→20:07)
[2022-06-02] MEDS: PIPERACILLIN SODIUM/TAZOBACTAM 3.375 GM in DEXTROSE 5% IN WATER 50 ML IV SCH ×4 (03:50→18:15)
[2022-06-02] MEDS ORDERED: PROMETHAZINE 25 MG/ML VIAL IV PRN (03:53)
[2022-06-02] MEDS ORDERED: VANCOMYCIN PER PHARMACY IV ONE (03:53)
[2022-06-02] MEDS ORDERED: ONDANSETRON 4 MG/2 ML VIAL IV PRN (03:53)
[2022-06-02] MEDS ORDERED: METOPROLOL TARTRATE 5 MG/5 ML VIAL IV PRN (03:53)
[2022-06-02] MEDS ORDERED: fentaNYL 2,500 MCG in 0.9 % SODIUM CHLORIDE 200 ML IV SCH (03:53)
[2022-06-02] MEDS: IPRATROPIUM/ALBUTEROL 3 ML AMPUL.NEB NEB SCH ×6 (04:37→22:49)
[2022-06-02] MEDS ORDERED: IPRATROPIUM/ALBUTEROL 3 ML AMPUL.NEB NEB ONE ×2 (04:38→06:28)
[2022-06-02] MEDS: 0.9 % SODIUM CHLORIDE 10 ML SYRINGE IV PRN ×2 (05:00→05:30)
[2022-06-02 06:20] LABS: Basophils # (Auto) 0.03 K/mcL (0.00-0.30); Basophils % (Auto) 0.3 % (0.0-2.0); Eosinophils # (Auto) 0 K/mcL (0.00-0.70); Eosinophils % (Auto) 0 % (0.0-7.0); Hematocrit 25.6 % (34.1-44.9); Hemoglobin 8.4 g/dL (11.2-15.7); Lymphocytes % (Auto) 4.3 % (15.5-49.0); Mean Cell Volume 89.2 fL (80.0-100.0); Mean Corpuscular HGB Conc 32.8 g/dL (31.0-36.0); Mean Platelet Volume 10.5 fL (8.8-12.5); Monocytes # (Auto) 0.38 K/mcL (0.10-0.90); Monocytes % (Auto) 3.3 % (1.0-12.0); Neutrophils % (Auto) 91.2 % (38.0-78.0); Platelet Count 358 K/mcL (140-440); RBC 2.87 M/mcL (3.59-5.38); Red Cell Distribution Width 14.7 % (11.5-14.5); WBC 11.6 K/mcL (4.5-11.0)
--- NOTE | 2022-06-02 06:42 | Cat Scan Report ---
INDICATION: sob, elevated ddimer COMPARISON: Previous chest x-rays dated 06/01/2022, 05/23/2022 TECHNIQUE: Axial images obtained through the chest. 85ml Isovue 370 injected intravenously, and scanning was performed during pulmonary arterial phase. Sagittally and coronally reformatted images were obtained. MIP reformatted images. FINDINGS: Examination was initially interpreted by [facility] Lungs:There is an endotracheal tube with in the trachea. Tip of this tube is in the right mainstem bronchus. This tube should be repositioned and pulled back. Moderate to large right pleural effusion. There is right lower lobe consolidation. This may be secondary to compressive atelectasis but pneumonia is possible. There is left lower lobe consolidation as well. This is consistent with pneumonia. Mediastinum, vascular:Opacification of the pulmonary vasculature is suboptimal. Main pulmonary artery measures 3.3 cm in cross-sectional diameter. This suggests pulmonary arterial hypertension. Main pulmonary artery, right pulmonary artery, left pulmonary artery are otherwise negative. No intraluminal filling defects. No lobar, segmental, or subsegmental emboli. Thoracic aorta is negative. No aneurysmal dilatation No pathologic mediastinal or hilar adenopathy Heart:No cardiomegaly. No pericardial effusion. There is no reflux of contrast material into the inferior vena cava or hepatic veins Pleura:Moderate to large right pleural effusion Axilla, supraclavicular regions, chest wall:No pathologic axillary or supraclavicular adenopathy. Musculoskeletal:Negative thoracic spine. No compression fracture. No lytic lesion. No rib or sternal lesions Upper Abdomen:There is an esophagogastric tube within the stomach. There is borderline splenomegaly. Spleen measures 12 cm maximally. Mild gallbladder distention. No calcified stones. No gallbladder wall thickening IMPRESSION: 1. Negative pulmonary CTA. 2. Moderate to large right pleural effusion 3. Bilateral lower lobe consolidation. Atelectasis but pneumonia is suspected 4. Endotracheal tube tip in the right mainstem bronchus. Esophagogastric tube tip in the stomach 5. Enlarged main pulmonary artery consistent with pulmonary arterial hypertension The exam was performed using radiation dose optimization techniques including, but not limited to, automated exposure control, adjustment of the mA and/or kV according to patient size and use of iterative reconstruction technique. Interpreted and Authenticated by: Paul Perez 06/02/22
[2022-06-02 06:52] LABS: ALT/SGPT 8 U/L (<40); AST/SGOT 14 U/L (<32); Albumin 3.6 gm/dL (3.2-5.2); Albumin/Globulin Ratio 1.3 (1.0-2.3); Alkaline Phosphatase 119 U/L (39-117); Bilirubin,Total 0.2 mg/dL (0.1-1.0); Blood Urea Nitrogen 26 mg/dL (8-23); Calcium 8.6 mg/dL (8.6-10.4); Carbon Dioxide 19 mmol/L (22-30); Chloride 102 mmol/L (96-108); Globulin 2.7 gm/dL (2.2-3.7); Glomerular Filtration Rate 55; Glucose 160 mg/dL (70-105); Phosphorous 3.3 mg/dL (2.5-4.5)
--- NOTE | 2022-06-02 06:52 | XRay Report ---
INDICATION: for cental line placement TECHNIQUE: AP, supine chest x-ray COMPARISON: Previous examination dated 06/01/2022. Previous chest CT scan dated 06/02/2022 FINDINGS: Endotracheal tube tip at the thoracic inlet. Right central venous catheter with its tip in the superior vena cava. No pneumothorax identified on this supine radiograph. Esophagogastric tube in the stomach. Right pleural effusion is demonstrated on CT scan. This is not well visualized on present examination There are right lung infiltrates. There is dense consolidation at the left lung base. This may represent volume loss or pneumonia. Incidental note is made of mild right convex scoliosis. Previous right reverse shoulder arthroplasty IMPRESSION: 1. Endotracheal tube tip at the thoracic inlet 2. Right central venous catheter tip in the superior vena cava. No pneumothorax identified on supine radiograph 3. Esophagogastric tube in the stomach 4. Bilateral pulmonary parenchymal density as above Interpreted and Authenticated by: Paul Perez 06/02/22
--- NOTE | 2022-06-02 06:54 | XRay Report ---
INDICATION: ET placement TECHNIQUE: AP supine chest x-ray COMPARISON: Previous examination dated 06/01/2022 FINDINGS:Examination was initially interpreted by [facility] Esophagogastric tube with its tip in the stomach Endotracheal tube tip is 1 cm proximal to the dilip. This should be pulled back slightly. There are bilateral pulmonary parenchymal infiltrates are consistent with pneumonia. There is density at the left lung base consistent with volume loss or consolidation. IMPRESSION: 1. Esophagogastric tube in good position within the stomach 2. Endotracheal tube tip is 1 cm proximal to the dilip 3. Bilateral pulmonary parenchymal infiltrates consistent with pneumonia Interpreted and Authenticated by: Paul Perez 06/02/22
--- NOTE | 2022-06-02 06:58 | XRay Report ---
INDICATION: sob TECHNIQUE: AP chest x-ray COMPARISON: Previous chest x-ray dated 05/23/2022 FINDINGS: Lungs:Increased parenchymal density of both lung bases, left worse than right. Appearance is consistent with pneumonia. Clinical correlation follow-up radiographs recommended. Heart, vascular:There is cardiomegaly. No evidence for congestive heart failure Mediastinum, maggy:No mediastinal widening. No hilar mass Pleura:No pleural fluid. No pleural-based mass or calcification Skeletal:Previous right reverse shoulder arthroplasty IMPRESSION: 1. Bibasilar infiltrates consistent with pneumonia 2. Cardiomegaly without evidence for congestive heart failure Interpreted and Authenticated by: Paul Perez 06/02/22
[2022-06-02] MEDS ORDERED: FUROSEMIDE 40 MG/4 ML VIAL IV SCH (08:00)
[2022-06-02] MEDS: PANTOPRAZOLE 40 MG VIAL IV SCH (08:01)
[2022-06-02] MEDS ORDERED: VANCOMYCIN PER PHARMACY IV SCH (09:30)
[2022-06-02] MEDS: ACETAMINOPHEN 650 MG/65 ML BAG IV PRN (09:45)
[2022-06-02] MEDS: CHLORHEXIDINE GLUCONATE 1 ML ORAL.SOL SWABMOUTH SCH ×2 (09:48→20:05)
[2022-06-02] MEDS ORDERED: VANCOMYCIN 500 MG in 0.9 % SODIUM CHLORIDE 100 ML IV ONE (10:00)
[2022-06-02] MEDS ORDERED: ETOMIDATE 20 MG/10 ML VIAL IV ONE (10:08)
[2022-06-02] MEDS ORDERED: ROCURONIUM 10 MG/ML ML IV ONE (10:08)
[2022-06-02] MEDS: fentaNYL 2,500 MCG in 0.9 % SODIUM CHLORIDE 200 ML IV SCH ×2 (10:19→15:57)
--- NOTE | 2022-06-02 14:39 | Internal Med Progress Note ---
SUBJECTIVE Subjective Patient information: Note initiated : 06/02/22 at 2:27 pm Service Date, if different from initiated Date: [] Patient: Johana Jimenez a 72 y/o F admitted on 06/02/22 for Shortness of breath. Chief Complaint: [] Interval history: History of present illness: Ms. Jimenez is a 72 year old F history of congestive heart failure, chronic back pain, proximal atrial fibrillation's, essential hypertensions, mixed dyslipidemia, hypothyroidism, presenting with shortness of breath. The following history is limited by clinical situations because by the time I arrived, she is already intubated and cannot give me any clinical history. Acc ording to report by the ED, the patient's became increasingly hypoxic, with increased work of breathing, and therefore she was being intubated in the ED. Significant for current clinical findings including imaging with both chest x- ray and CT angiogram of the lungs showing negative for pulmonary embolism but positive for parenchymal infiltrates as well as cardiomegaly and pleural effusion suggesting the presence of the pneumonia as well as consider heart failure with exacerbations. Labs significant for negative screening test for COVID pneumonia/influenza AMB/RSV. Positive for leukocytosis with WBC 13.5. Venous blood gas showing acidosis with pH 7.28, PCO2 and PO2 36.8 and 112, respectively. Bicarb 17.3. BNP 1452, procalcitonin level 41.43. Serum lactic acid 0.8. D-dimer elevated at 1.21. 4/3 Review of Systems: denies headache/fever/chills/nausea/vomiting/chest or abdominal pa in/cough/dyspnea/diarrhea. Otherwise see above. PHYSICAL EXAM General: Alert, Awake, No acute Distress Eyes/N/T: EOMI, no scleral icterus, PERRL, Head/Neck: neck supple, full ROM, CV: Irregular, no murmurs, Pulm: decreased BS and rhonchi b/l, no wheezing Abd: soft, nontender, +BS x4 Ext: no clubbing/cyanosis/edema, nontender Neuro: Alert, no focal deficits, moves all extremities, sensations intact b/l upper/lower Psychiatric: Skin: warm/dry, normal color Constitutional Vitals: Vital Signs Temp Pulse Resp BP Pulse Ox O2 Del Method O2 Flow Rate 98.9 F 88 18 116/56 97 Mechanical Ventilation 8 06/02/22 12:00 06/02/22 08:29 06/02/22 12:37 06/02/22 08:01 06/02/22 12:37 06/02/22 11:20 06/01/22 22:38 Period Temp Pulse Resp BP Sys/Neal Pulse Ox O2 Del Method O2 Flow Rate Last 24 Hr 97.4 F-99.3 F 39-101 12-32 91-167/43-123 91-99 Mechanical Ventilation-Room Air 8-8 Intake and Output 06/02/22 06/02/22 06/02/22 03:59 11:59 19:59 Intake Total 591 372.4 30 Output Total 2650 1429 340 Balance -9 -1056.6 -310 Weight 122.425 kg 122.289 kg Patient Weight 06/03/22 03:59 Weight 122.289 kg Intake & Output: Intake & Output 06/02/22 06/02/22 06/02/22 03:59 11:59 19:59 Intake Total 591 372.4 30 Output Total 2650 1429 340 Balance -9 -1056.6 -310 Weight 122.425 kg 122.289 kg Intake: IV 591 372.4 30 Sodium Chloride 0.9% 500 ml @ 500 Wide Open IV [facility] Rx#: [id number] Versed 50 mg In Sodium Chloride 41 0.9% 90 ml @ 1 MG/HR 2 mls/hr IV Q24H [facility] Rx#:[id number] Zosyn 3.375 gm In Dextrose 5% 100 in Water 50 ml @ 100 mls/hr IV Q6H [facility] Rx#:[id number] Diprivan 1,000 mg In Premix 1 72 21 Bag @ 5 MCG/KG/MIN 3.81 mls/hr IV .Q24H [facility] Rx#:[id number] Vancomycin 500 mg In Sodium 100 Chloride 0.9% 100 ml @ 100 mls/ hr IV [facility] Rx#:[id number] Rocephin 2 gm In Dextrose 5% in 50 Water 50 ml @ 100 mls/hr [facility] Rx#:[id number] fentaNYL 2,500 MCG In Sodium 35.4 9 Chloride 0.9% 200 ml @ 25 MCG/ HR 2.5 mls/hr IV Q24H [facility] Rx#: [id number] Tube Feeding 0 Output: Gastric Drainage 0 Oral NG/OG 0 Urine Catheter Amount [id number] [id number] Other: Urine Appearance Clear Clear Clear Uretheral (Bautista) Clear Clear Urine Color Pale Yellow Yellow Pale Pale Uretheral (Bautista) Pale Yellow Pale Urine Odor Normal Normal Normal OBJ DATA Labs 06/02/22 05:36 06/02/22 05:36 Labs: Abnormal Lab Results 06/02/22 06/02/22 06/02/22 10:37 05:36 05:36 WBC 11.6 H RBC 2.87 L Hgb 8.4 L Hct 25.6 L POC Hct RDW 14.7 H Immature Gran % (Auto) 0.9 H Neut % (Auto) 91.2 H Lymph % (Auto) 4.3 L Lymph # (Auto) 0.50 L [place] # (Auto) Immature Gran # 0.10 H Absolute Neutrophils 10.58 H D-Dimer POC pH POC pCO2 30.9 L POC pO2 POC HCO3 20.7 L POC ABG Base Excess -4.0 L ABG Lactic Acid POC VBG pH POC VBG pCO2 at Temp POC VBG pO2 POC VBG HCO3 POC VBG Total CO2 POC Venous O2 Sat POC VBG Base Excess Hgb O2 Saturation POC Sodium Carbon Dioxide 19 L POC Total CO2 22.0 L POC BUN BUN 26 H POC Creatinine Glucose 160 H POC Glucose POC WB Ioniz Calcium Alkaline Phosphatase 119 H NT-Pro-B Natriuret Pep Procalcitonin 06/02/22 06/02/22 06/01/22 04:52 01:01 23:31 WBC RBC Hgb Hct POC Hct RDW Immature Gran % (Auto) Neut % (Auto) Lymph % (Auto) Lymph # (Auto) [place] # (Auto) Immature Gran # Absolute Neutrophils D-Dimer POC pH 7.34 L POC pCO2 POC pO2 156 H POC HCO3 19.9 L POC ABG Base Excess -6.0 L ABG Lactic Acid 0.4 L POC VBG pH 7.28 L POC VBG pCO2 at Temp 36.8 L POC VBG pO2 112 H POC VBG HCO3 17.3 L POC VBG Total CO2 18.0 L POC Venous O2 Sat 98.0 H POC VBG Base Excess -9.0 L Hgb O2 Saturation 99.0 H POC Sodium Carbon Dioxide POC Total CO2 21.0 L POC BUN BUN POC Creatinine Glucose POC Glucose POC WB Ioniz Calcium Alkaline Phosphatase NT-Pro-B Natriuret Pep 1452.0 H Procalcitonin 06/01/22 06/01/22 06/01/22 22:43 21:17 21:10 WBC RBC Hgb Hct POC Hct 27.0 L RDW Immature Gran % (Auto) Neut % (Auto) Lymph % (Auto) Lymph # (Auto) [place] # (Auto) Immature Gran # Absolute Neutrophils D-Dimer POC pH POC pCO2 POC pO2 POC HCO3 POC ABG Base Excess ABG Lactic Acid POC VBG pH 7.31 L POC VBG pCO2 at Temp 37.3 L POC VBG pO2 POC VBG HCO3 18.8 L POC VBG Total CO2 20.0 L POC Venous O2 Sat POC VBG Base Excess -8.0 L Hgb O2 Saturation POC Sodium 132 L Carbon Dioxide POC Total CO2 21.0 L POC BUN 30 H BUN POC Creatinine 1.5 H Glucose POC Glucose 107 H POC WB Ioniz Calcium 1.14 L Alkaline Phosphatase NT-Pro-B Natriuret Pep Procalcitonin 41.43 H 06/01/22 06/01/22 21:06 21:06 WBC 13.5 H RBC 3.04 L Hgb 8.7 L Hct 27.4 L POC Hct RDW 14.7 H Immature Gran % (Auto) 0.9 H Neut % (Auto) Lymph % (Auto) 8.2 L Lymph # (Auto) 1.10 L [place] # (Auto) 1.52 H Immature Gran # 0.12 H Absolute Neutrophils 10.24 H D-Dimer 1.21 H POC pH POC pCO2 POC pO2 POC HCO3 POC ABG Base Excess ABG Lactic Acid POC VBG pH POC VBG pCO2 at Temp POC VBG pO2 POC VBG HCO3 POC VBG Total CO2 POC Venous O2 Sat POC VBG Base Excess Hgb O2 Saturation POC Sodium Carbon Dioxide POC Total CO2 POC BUN BUN POC Creatinine Glucose POC Glucose POC WB Ioniz Calcium Alkaline Phosphatase NT-Pro-B Natriuret Pep Procalcitonin Meds: Medications Albuterol/Ipratropium (Ipratropium/Albuterol 3 Ml Ampul.Neb) 3 ml NEB Q4HRT [facility] Last Admin: 06/02/22 14:21 Dose: 3 ml Amiodarone HCl (Amiodarone Hcl 200 Mg Tablet) 100 mg PO HS [facility] Amlodipine Besylate (Amlodipine 5 Mg Tablet) 5 mg PO QDAY [facility] Atorvastatin Calcium (Atorvastatin 40 Mg Tablet) 80 mg PO HS [facility] Chlorhexidine Gluconate (Chlorhexidine Gluconate 1 Ml Oral.Ellen) 15 ml SWABMOUTH BID [facility] Last Admin: 06/02/22 09:48 Dose: 15 ml Furosemide (Furosemide 40 Mg/4 Ml Vial) 40 mg IV BIDD [facility] Last Admin: 06/02/22 08:01 Dose: 40 mg Piperacillin Sod/Tazobactam (Sod 3.375 gm/ Dextrose) 50 mls @ 100 mls/hr IV Q6H [facility]; Protocol Last Admin: 06/02/22 12:59 Dose: 100 mls/hr Propofol 1,000 mg/ Premix 100 mls @ 3.81 mls/hr IV .Q24H [facility]; Protocol Last Titration: 06/02/22 13:33 Dose: 10 mcg/kg/min, 7.62 mls/hr Acetaminophen (Ofirmev) 650 mg in 65 mls @ 130 mls/hr IV Q6HP PRN; Protocol PRN Reason: PAIN/FEVER > 101 Last Infusion: 06/02/22 10:29 Dose: Infused Vancomycin HCl 1,500 mg/ (Sodium Chloride) 500 mls @ 333.3 mls/hr IV Q12H [facility] Fentanyl 2,500 mcg/ Sodium (Chloride) 250 mls @ 2.5 mls/hr IV Q24H [facility]; Protocol Last Titration: 06/02/22 13:33 Dose: 35 mcg/hr, 3.5 mls/hr Metoprolol Tartrate (Metoprolol Tartrate 5 Mg/5 Ml Vial) 5 mg IV Q5M PRN PRN Reason: Tachyarrhythmias Ondansetron HCl (Ondansetron 4 Mg/2 Ml Vial) 4 mg IV Q4-6HP PRN; Protocol PRN Reason: Nausea And Vomiting Pantoprazole Sodium (Pantoprazole 40 Mg Vial) 40 mg IV QAMAC [facility] Last Admin: 06/02/22 08:01 Dose: 40 mg Promethazine HCl (Promethazine 25 Mg/Ml Vial) 12.5 mg IV Q4-6HP PRN; Protocol PRN Reason: Nausea And Vomiting Sodium Chloride (0.9 % Sodium Chloride 10 Ml Syringe) 10 ml IV Q8 [facility] Last Admin: 06/02/22 09:47 Dose: 10 ml Sodium Chloride (0.9 % Sodium Chloride 10 Ml Syringe) 10 ml IV UD PRN PRN Reason: FLUSH Last Admin: 06/02/22 05:30 Dose: 10 ml Sodium Chloride (0.9 % Sodium Chloride 10 Ml Syringe) 10 ml IV Q12 [facility] Last Admin: 06/02/22 09:49 Dose: 10 ml Vancomycin HCl (Vancomycin Per Pharmacy) 1 order IV UD [facility]; Protocol A/P Narrative A/P Narrative: Assessment: *Acute hypoxic respiratory failure: 2/2 CAP & Pleural Effusion & ??CHF w/exacerbation: -Intubated (06/01) *PNA: *Right pleural effusion: *??Acute on chronic CHF: *Paroxysmal atrial fibrillation: *FAUSTINO on CKD III: *HTN/HLD: *Hypothyroidism: *Generalized weakness/deconditioning: *h/o chronic back pain: *Depression/anxiety: P: -Vanco/Zosyn, pending BC/SC, MRSA screening -Serial lactic acid , Procalcitonin level -wean mechanical ventilation as able, -Daily sedation holiday for assessment for readiness for extubation -Daily CXR/ABG -Fentanyl drip/Propofol drip -monitor renal fxn/uop/fluid balance -prn IV lasix -echo pending -cont Norvasc -BB held initially for CHF exacerbation -f/u cbc w/ auto diff in the morning to trend WBC, monitor chem and replace electorlytes prn -cont Amiodarone -cont statin -Continue psych meds when able -PT/OT -CM for placement needs -ppx: Eliquis / Protonix Code status: Gas Transfer Operator Spent With Patient Time: Total time spent is greater than 50% in coordination of care (as documented) at patient's floor/unit and/or counseling patient: QUALITY Stroke Symptom Onset Unknown: No VTE Deep Vein Thrombosis/Pulmonary Embolism Present on Admission: No
[2022-06-02] MEDS ORDERED: fentaNYL 50 ML ONE (15:47)
[2022-06-02] MEDS: MONTELUKAST 10 MG TABLET PO SCH (20:04)
[2022-06-02] MEDS: APIXABAN 5 MG TABLET PO SCH (20:04)
[2022-06-02] MEDS: ATORVASTATIN 40 MG TABLET PO SCH (20:04)
[2022-06-02] MEDS: rOPINIRole 1 MG TABLET PO SCH (20:04)
[2022-06-02] MEDS: AMIODARONE HCL 200 MG TABLET PO SCH (20:04)
[2022-06-02] MEDS: NORTRIPTYLINE 25 MG CAPSULE PO SCH (20:05)
[2022-06-02] MEDS: VANCOMYCIN 1,500 MG in 0.9 % SODIUM CHLORIDE 500 ML IV SCH (20:08)
[2022-06-03] MEDS: PIPERACILLIN SODIUM/TAZOBACTAM 3.375 GM in DEXTROSE 5% IN WATER 50 ML IV SCH ×5 (00:29→23:54)
[2022-06-03] MEDS: PROPOFOL 1,000 MG in PREMIX 1 BAG IV SCH ×3 (01:04→09:43)
[2022-06-03] MEDS: IPRATROPIUM/ALBUTEROL 3 ML AMPUL.NEB NEB SCH ×6 (02:46→23:54)
[2022-06-03] MEDS: 0.9 % SODIUM CHLORIDE 10 ML SYRINGE IV SCH ×5 (05:24→20:57)
[2022-06-03] MEDS: 0.9 % SODIUM CHLORIDE 10 ML SYRINGE IV PRN (05:25)
[2022-06-03 06:58] LABS: Basophils # (Auto) 0.05 K/mcL (0.00-0.30); Basophils % (Auto) 0.4 % (0.0-2.0); Eosinophils # (Auto) 0.07 K/mcL (0.00-0.70); Eosinophils % (Auto) 0.5 % (0.0-7.0); Hemoglobin 8.2 g/dL (11.2-15.7); Lymphocytes # (Auto) 1.21 K/mcL (1.50-4.80); Lymphocytes % (Auto) 9.1 % (15.5-49.0); Mean Cell Volume 92.5 fL (80.0-100.0); Mean Corpuscular HGB Conc 31.5 g/dL (31.0-36.0); Mean Platelet Volume 10.7 fL (8.8-12.5); Monocytes # (Auto) 1.34 K/mcL (0.10-0.90); Neutrophils % (Auto) 79.3 % (38.0-78.0); Platelet Count 378 K/mcL (140-440); RBC 2.81 M/mcL (3.59-5.38); WBC 13.3 K/mcL (4.5-11.0)
--- NOTE | 2022-06-03 07:14 | XRay Report ---
INDICATION: Mechanically Ventilated TECHNIQUE: AP portable semiupright chest x-ray COMPARISON: Previous chest x-rays dated 06/02/2022, 06/01/2022. Previous chest CT scan dated 06/02/2022 FINDINGS: Endotracheal tube tip remains 5 cm above the dilip. Right central venous catheter is in the superior vena cava, unchanged Esophagogastric tube tip is off the plane of this image Bilateral diffuse pulmonary parenchymal infiltrates, right worse than left. Left retrocardiac region appears somewhat improved with better expansion of the left lower lobe. No other interval change. Right pleural effusion is demonstrated on CT scan. This is not well-visualized on this semiupright radiograph IMPRESSION: 1. Slight interval improvement in left lower lobe volume loss or consolidation 2. No other interval change Interpreted and Authenticated by: Paul Perez 06/03/22
--- NOTE | 2022-06-03 07:45 | Internal Med Progress Note ---
SUBJECTIVE Subjective Patient information: Note initiated : 06/03/22 at 7:40 am Service Date, if different from initiated Date: [] Patient: Johana Jimenez a 72 y/o F admitted on 06/02/22 for Shortness of breath. Chief Complaint: [] Interval history: History of present illness: Ms. Jimenez is a 72 year old F history of congestive heart failure, chronic back pain, proximal atrial fibrillation's, essential hypertensions, mixed dyslipidemia, hypothyroidism, presenting with shortness of breath. The following history is limited by clinical situations because by the time I arrived, she is already intubated and cannot give me any clinical history. Acc ording to report by the ED, the patient's became increasingly hypoxic, with increased work of breathing, and therefore she was being intubated in the ED. Significant for current clinical findings including imaging with both chest x- ray and CT angiogram of the lungs showing negative for pulmonary embolism but positive for parenchymal infiltrates as well as cardiomegaly and pleural effusion suggesting the presence of the pneumonia as well as consider heart failure with exacerbations. Labs significant for negative screening test for COVID pneumonia/influenza AMB/RSV. Positive for leukocytosis with WBC 13.5. Venous blood gas showing acidosis with pH 7.28, PCO2 and PO2 36.8 and 112, respectively. Bicarb 17.3. BNP 1452, procalcitonin level 41.43. Serum lactic acid 0.8. D-dimer elevated at 1.21. / Patient currently on spontaneous breathing trial. Sedation held. Leukocytosis slightly worsened today. Anemia present with hemoglobin slight drop at 8.2. Monitor. Elevated procalcitonin. was agitated last evening. Review of Systems: denies headache/fever/chills/nausea/vomiting/chest or abdominal pain/cough/dyspnea/diarrhea. Otherwise see above. PHYSICAL EXAM General: sedated, No acute Distress Eyes/N/T: EOMI, no scleral icterus, PERRL, Head/Neck: neck supple, full ROM, CV: Irregular, no murmurs, Pulm: decreased BS and mild rhonchi b/l, no wheezing, intubated Abd: soft, nontender, +BS x4 Ext: no clubbing/cyanosis, b/l LE 1+ edema, nontender Neuro: sedated on vent , spontaneoulsy moves all extremities, sensations intact b/l upper/lower Psychiatric: Skin: warm/dry, normal color Constitutional Vitals: Vital Signs Temp Pulse Resp BP Pulse Ox O2 Del Method O2 Flow Rate 99.2 F H 93 H 18 153/67 96 Mechanical Ventilation 8 06/03/22 07:01 06/03/22 07:01 06/03/22 07:01 06/03/22 07:01 06/03/22 07:01 06/03/22 07:14 06/01/22 22:38 Period Temp Pulse Resp BP Sys/Neal Pulse Ox O2 Del Method O2 Flow Rate Last 24 Hr 98.9 F-99.9 F 82-103 12-32 103-163/48-90 94-98 CPAP-Mechanical Ventilation Intake and Output 06/02/22 06/03/22 06/03/22 19:59 03:59 11:59 Intake Total 210 694 230 Output Total 918 322 248 Balance -708 372 -18 Weight 121.291 kg Intake & Output: Intake & Output 06/02/22 06/03/22 06/03/22 19:59 03:59 11:59 Intake Total 210 694 230 Output Total 918 322 248 Balance -708 372 -18 Weight 121.291 kg Intake: IV 210 694 230 Versed 50 mg In Sodium Chloride 0 0.9% 90 ml @ 1 MG/HR 2 mls/hr IV Q24H [facility] Rx#:[id number] Zosyn 3.375 gm In Dextrose 5% 100 50 50 in Water 50 ml @ 100 mls/hr IV Q6H [facility] Rx#:[id number] Diprivan 1,000 mg In Premix 1 89 127 151 Bag @ 5 MCG/KG/MIN 3.81 mls/hr IV .Q24H [facility] Rx#:[id number] Vancomycin 1,500 mg In Sodium 500 Chloride 0.9% 500 ml @ 333.3 mls/hr IV Q12H [facility] Rx#: [id number] fentaNYL 2,500 MCG In Sodium 21 17 29 Chloride 0.9% 200 ml @ 25 MCG/ HR 2.5 mls/hr IV Q24H [facility] Rx#: [id number] Oral 0 0 Tube Feeding 0 0 Output: Gastric Drainage 50 Oral NG/OG 50 Urine Catheter Amount 868 322 248 Other: Urine Appearance Clear Clear Clear Uretheral (Bautista) Clear Clear Urine Color Yellow Yellow Yellow Uretheral (Bautista) Yellow Dark Yellow Urine Odor Normal OBJ DATA Labs 06/03/22 05:17 06/03/22 05:17 Labs: Abnormal Lab Results 06/03/22 06/03/22 06/02/22 07:15 05:17 10:37 WBC 13.3 H RBC 2.81 L Hgb 8.2 L Hct 26.0 L POC Hct RDW 15.0 H Immature Gran % (Auto) 0.7 H Neut % (Auto) 79.3 H Lymph % (Auto) 9.1 L Lymph # (Auto) 1.21 L [place] # (Auto) 1.34 H Immature Gran # 0.09 H Absolute Neutrophils 10.58 H D-Dimer POC pH POC pCO2 34.3 L 30.9 L POC pO2 POC HCO3 20.7 L POC ABG Base Excess -4.0 L ABG Lactic Acid POC VBG pH POC VBG pCO2 at Temp POC VBG pO2 POC VBG HCO3 POC VBG Total CO2 POC Venous O2 Sat POC VBG Base Excess Hgb O2 Saturation POC Sodium Carbon Dioxide POC Total CO2 22.0 L POC BUN BUN POC Creatinine Glucose POC Glucose POC WB Ioniz Calcium Alkaline Phosphatase NT-Pro-B Natriuret Pep Procalcitonin 06/02/22 06/02/22 06/02/22 05:36 05:36 04:52 WBC 11.6 H RBC 2.87 L Hgb 8.4 L Hct 25.6 L POC Hct RDW 14.7 H Immature Gran % (Auto) 0.9 H Neut % (Auto) 91.2 H Lymph % (Auto) 4.3 L Lymph # (Auto) 0.50 L [place] # (Auto) Immature Gran # 0.10 H Absolute Neutrophils 10.58 H D-Dimer POC pH 7.34 L POC pCO2 POC pO2 156 H POC HCO3 19.9 L POC ABG Base Excess -6.0 L ABG Lactic Acid 0.4 L POC VBG pH POC VBG pCO2 at Temp POC VBG pO2 POC VBG HCO3 POC VBG Total CO2 POC Venous O2 Sat POC VBG Base Excess Hgb O2 Saturation 99.0 H POC Sodium Carbon Dioxide 19 L POC Total CO2 21.0 L POC BUN BUN 26 H POC Creatinine Glucose 160 H POC Glucose POC WB Ioniz Calcium Alkaline Phosphatase 119 H NT-Pro-B Natriuret Pep Procalcitonin 06/02/22 06/01/22 06/01/22 01:01 23:31 22:43 WBC RBC Hgb Hct POC Hct RDW Immature Gran % (Auto) Neut % (Auto) Lymph % (Auto) Lymph # (Auto) [place] # (Auto) Immature Gran # Absolute Neutrophils D-Dimer POC pH POC pCO2 POC pO2 POC HCO3 POC ABG Base Excess ABG Lactic Acid POC VBG pH 7.28 L POC VBG pCO2 at Temp 36.8 L POC VBG pO2 112 H POC VBG HCO3 17.3 L POC VBG Total CO2 18.0 L POC Venous O2 Sat 98.0 H POC VBG Base Excess -9.0 L Hgb O2 Saturation POC Sodium Carbon Dioxide POC Total CO2 POC BUN BUN POC Creatinine Glucose POC Glucose POC WB Ioniz Calcium Alkaline Phosphatase NT-Pro-B Natriuret Pep 1452.0 H Procalcitonin 41.43 H 06/01/22 06/01/22 06/01/22 21:17 21:10 21:06 WBC RBC Hgb Hct POC Hct 27.0 L RDW Immature Gran % (Auto) Neut % (Auto) Lymph % (Auto) Lymph # (Auto) [place] # (Auto) Immature Gran # Absolute Neutrophils D-Dimer 1.21 H POC pH POC pCO2 POC pO2 POC HCO3 POC ABG Base Excess ABG Lactic Acid POC VBG pH 7.31 L POC VBG pCO2 at Temp 37.3 L POC VBG pO2 POC VBG HCO3 18.8 L POC VBG Total CO2 20.0 L POC Venous O2 Sat POC VBG Base Excess -8.0 L Hgb O2 Saturation POC Sodium 132 L Carbon Dioxide POC Total CO2 21.0 L POC BUN 30 H BUN POC Creatinine 1.5 H Glucose POC Glucose 107 H POC WB Ioniz Calcium 1.14 L Alkaline Phosphatase NT-Pro-B Natriuret Pep Procalcitonin 06/01/22 21:06 WBC 13.5 H RBC 3.04 L Hgb 8.7 L Hct 27.4 L POC Hct RDW 14.7 H Immature Gran % (Auto) 0.9 H Neut % (Auto) Lymph % (Auto) 8.2 L Lymph # (Auto) 1.10 L [place] # (Auto) 1.52 H Immature Gran # 0.12 H Absolute Neutrophils 10.24 H D-Dimer POC pH POC pCO2 POC pO2 POC HCO3 POC ABG Base Excess ABG Lactic Acid POC VBG pH POC VBG pCO2 at Temp POC VBG pO2 POC VBG HCO3 POC VBG Total CO2 POC Venous O2 Sat POC VBG Base Excess Hgb O2 Saturation POC Sodium Carbon Dioxide POC Total CO2 POC BUN BUN POC Creatinine Glucose POC Glucose POC WB Ioniz Calcium Alkaline Phosphatase NT-Pro-B Natriuret Pep Procalcitonin Meds: Medications Albuterol/Ipratropium (Ipratropium/Albuterol 3 Ml Ampul.Neb) 3 ml NEB Q4HRT [facility] Last Admin: 06/03/22 07:17 Dose: 3 ml Amiodarone HCl (Amiodarone Hcl 200 Mg Tablet) 100 mg PO HS [facility] Last Admin: 06/02/22 20:04 Dose: 100 mg Amlodipine Besylate (Amlodipine 5 Mg Tablet) 5 mg PO QDAY [facility] Apixaban (Apixaban 5 Mg Tablet) 5 mg PO BID [facility] Last Admin: 06/02/22 20:04 Dose: 5 mg Atorvastatin Calcium (Atorvastatin 40 Mg Tablet) 80 mg PO HS [facility] Last Admin: 06/02/22 20:04 Dose: 80 mg Buspirone HCl (Buspirone 15 Mg Tablet) 15 mg PO BID [facility] Chlorhexidine Gluconate (Chlorhexidine Gluconate 1 Ml Oral.Ellen) 15 ml SWABMOUTH BID [facility] Last Admin: 06/02/22 20:05 Dose: 15 ml Duloxetine HCl (Duloxetine 30 Mg Capsule) 60 mg PO DAILY [facility] Gabapentin (Gabapentin 100 Mg Capsule) 200 mg PO BID [facility] Piperacillin Sod/Tazobactam (Sod 3.375 gm/ Dextrose) 50 mls @ 100 mls/hr IV Q6H [facility]; Protocol Last Infusion: 06/03/22 06:27 Dose: Infused Propofol 1,000 mg/ Premix 100 mls @ 3.81 mls/hr IV .Q24H [facility]; Protocol Last Titration: 06/03/22 07:22 Dose: 30 mcg/kg/min, 22.861 mls/hr Acetaminophen (Ofirmev) 650 mg in 65 mls @ 130 mls/hr IV Q6HP PRN; Protocol PRN Reason: PAIN/FEVER > 101 Last Infusion: 06/02/22 10:29 Dose: Infused Vancomycin HCl 1,500 mg/ (Sodium Chloride) 500 mls @ 333.3 mls/hr IV Q12H [facility] Last Infusion: 06/02/22 22:14 Dose: Infused Fentanyl 2,500 mcg/ Sodium (Chloride) 250 mls @ 2.5 mls/hr IV Q24H [facility]; Protocol Last Titration: 06/03/22 05:29 Dose: 50 mcg/hr, 5 mls/hr Levothyroxine Sodium (Levothyroxine Sodium 112 Mcg Tablet) 112 mcg PO QDAY [facility] Lidocaine (Lidocaine Patch) 1 patch TOPICAL DAILY@1000 [facility] Metoprolol Tartrate (Metoprolol Tartrate 5 Mg/5 Ml Vial) 5 mg IV Q5M PRN PRN Reason: Tachyarrhythmias Montelukast Sodium (Montelukast 10 Mg Tablet) 10 mg PO [facility] Last Admin: 06/02/22 20:04 Dose: 10 mg Nortriptyline HCl (Nortriptyline 25 Mg Capsule) 50 mg PO [facility] Last Admin: 06/02/22 20:05 Dose: 50 mg Ondansetron HCl (Ondansetron 4 Mg/2 Ml Vial) 4 mg IV Q4-6HP PRN; Protocol PRN Reason: Nausea And Vomiting Pantoprazole Sodium (Pantoprazole 40 Mg Vial) 40 mg IV QAMAC [facility] Last Admin: 06/02/22 08:01 Dose: 40 mg Promethazine HCl (Promethazine 25 Mg/Ml Vial) 12.5 mg IV Q4-6HP PRN; Protocol PRN Reason: Nausea And Vomiting Ropinirole HCl (Ropinirole 1 Mg Tablet) 2 mg PO QHS [facility] Last Admin: 06/02/22 20:04 Dose: 2 mg Sodium Chloride (0.9 % Sodium Chloride 10 Ml Syringe) 10 ml IV Q8 [facility] Last Admin: 06/03/22 05:24 Dose: 10 ml Sodium Chloride (0.9 % Sodium Chloride 10 Ml Syringe) 10 ml IV UD PRN PRN Reason: FLUSH Last Admin: 06/03/22 05:25 Dose: 10 ml Sodium Chloride (0.9 % Sodium Chloride 10 Ml Syringe) 10 ml IV Q12 [facility] Last Admin: 06/02/22 20:05 Dose: 10 ml Trazodone HCl (Trazodone Hcl 50 Mg Tablet) 50 mg PO [facility] Vancomycin HCl (Vancomycin Per Pharmacy) 1 order IV UD [facility]; Protocol A/P Narrative A/P Narrative: Assessment: *Acute hypoxic respiratory failure: 2/2 CAP & Pleural Effusion & ??CHF w/exacerbation: -Intubated (06/01) -down to 30% fio2 *PNA(CAP): -flu/covid neg *Severe Sepsis: leukocytosis *Right pleural effusion: *??Acute on chronic diastolic CHF: -echo from March with good EF, with some diastolic dysfxn *Paroxysmal atrial fibrillation: *Encephalopathy, metabolic: *FAUSTINO on CKD III: *Metabolic acidosis: *Anemia, acute on chronic: monitor *HTN/HLD: *Hypothyroidism: *Generalized weakness/deconditioning: *h/o chronic back pain: *Depression/anxiety: P: -Vanco(d/c after today)/Zosyn, pending BC/SC, MRSA screening -Serial lactic acid , Procalcitonin level -wean mechanical ventilation as able, hopefully extubate today -Daily sedation holiday for assessment for readiness for extubation -Daily CXR/ABG -Fentanyl drip/Propofol drip -monitor renal fxn/uop/fluid balance -prn IV lasix -cont Norvasc -f/u cbc w/ auto diff in the morning to trend WBC, monitor chem and replace electorlytes prn -cont Amiodarone -cont statin -Continue psych meds when able -PT/OT -CM for placement needs -ppx: Eliquis / Protonix Code status: Account Support Associate Spent With Patient Time: Total time spent is greater than 50% in coordination of care (as documented) at patient's floor/unit and/or counseling patient: Critical Care Time: Yes Total Critical Care Time: 50 QUALITY Stroke Symptom Onset Unknown: No VTE Deep Vein Thrombosis/Pulmonary Embolism Present on Admission: No Restraints Restraint In Place: Yes Reason for restraints: protect lines
[2022-06-03 08:08] LABS: ALT/SGPT 6 U/L (<40); AST/SGOT 11 U/L (<32); Albumin 3.1 gm/dL (3.2-5.2); Albumin/Globulin Ratio 1.1 (1.0-2.3); Alkaline Phosphatase 110 U/L (39-117); Bilirubin,Direct < 0.2 mg/dL (0-0.3); Bilirubin,Total 0.2 mg/dL (0.1-1.0); Blood Urea Nitrogen 20 mg/dL (8-23); Calcium 8.8 mg/dL (8.6-10.4); Carbon Dioxide 19 mmol/L (22-30); Chloride 104 mmol/L (96-108); Globulin 2.7 gm/dL (2.2-3.7); Glomerular Filtration Rate 63; Glucose 109 mg/dL (70-105); Lactate Dehydrogenase 265 U/L (135-225); Phosphorous 2.5 mg/dL (2.5-4.5); Triglycerides 81 mg/dL (<150); Uric Acid 5.2 mg/dL (2.5-8.0)
[2022-06-03] MEDS: ACETAMINOPHEN 650 MG/65 ML BAG IV PRN ×2 (08:17→14:29)
[2022-06-03] MEDS: PANTOPRAZOLE 40 MG VIAL IV SCH (08:18)
[2022-06-03] MEDS: amLODIPine 5 MG TABLET PO SCH (08:42)
[2022-06-03] MEDS: CHLORHEXIDINE GLUCONATE 1 ML ORAL.SOL SWABMOUTH SCH ×2 (08:42→20:04)
[2022-06-03] MEDS: CARVEDILOL 6.25 MG TABLET PO SCH ×2 (08:42→17:05)
[2022-06-03] MEDS: APIXABAN 5 MG TABLET PO SCH ×2 (08:42→20:03)
[2022-06-03] MEDS: LEVOTHYROXINE SODIUM 112 MCG TABLET PO SCH (08:45)
[2022-06-03] MEDS: DULoxetine 30 MG CAPSULE PO SCH ×2 (08:45→09:01)
--- NOTE | 2022-06-03 09:26 | EKG ---
[facility] Test Date: 2022-06-01 Pat Name: Johana Jimenez Department: ED Room: Gender: Female [employer]visor [employer] Department: [place] : 1950 Requested By: [place] Order Number: [id number] Reading MD: Paul Maddox M.D. Measurements Intervals [place] Rate: 86 P: 0 OR: 85 QRS: 6 QRSD: 101 T: 74 QT: 388 QTc: 465 Interpretive Statements Baseline artifact in multiple leads SINUS RHYTHM Electronically Signed On 06-03-2022 9:26:13 PDT by Paul Maddox M.D. /[id number]
[2022-06-03] MEDS: VANCOMYCIN 1,500 MG in 0.9 % SODIUM CHLORIDE 500 ML IV SCH ×2 (09:30→20:36)
[2022-06-03] MEDS ORDERED: fentaNYL 2,500 MCG in 0.9 % SODIUM CHLORIDE 200 ML IV PRN (10:30)
[2022-06-03] MEDS ORDERED: OLANZapine 5 MG TABLET PO PRN (11:07)
[2022-06-03] MEDS: LIDOCAINE PATCH TOPICAL SCH (13:08)
[2022-06-03] MEDS: AMIODARONE HCL 200 MG TABLET PO SCH (20:03)
[2022-06-03] MEDS: MONTELUKAST 10 MG TABLET PO SCH (20:03)
[2022-06-03] MEDS: busPIRone 15 MG TABLET PO SCH (20:03)
[2022-06-03] MEDS: GABAPENTIN 100 MG CAPSULE PO SCH (20:04)
[2022-06-03] MEDS: traZODone HCL 50 MG TABLET PO SCH (20:04)
[2022-06-03] MEDS: rOPINIRole 1 MG TABLET PO SCH (20:04)
[2022-06-03] MEDS: NORTRIPTYLINE 25 MG CAPSULE PO SCH (20:04)
[2022-06-03] MEDS: ATORVASTATIN 40 MG TABLET PO SCH (20:04)
[2022-06-04] MEDS: ACETAMINOPHEN 650 MG/65 ML BAG IV PRN ×3 (03:23→20:25)
[2022-06-04] MEDS: PROPOFOL 1,000 MG in PREMIX 1 BAG IV SCH (03:56)
[2022-06-04] MEDS: IPRATROPIUM/ALBUTEROL 3 ML AMPUL.NEB NEB SCH ×4 (03:57→21:00)
[2022-06-04] MEDS: PIPERACILLIN SODIUM/TAZOBACTAM 3.375 GM in DEXTROSE 5% IN WATER 50 ML IV SCH ×3 (05:40→17:59)
[2022-06-04] MEDS: 0.9 % SODIUM CHLORIDE 10 ML SYRINGE IV PRN ×3 (05:40→20:26)
[2022-06-04 06:49] LABS: Hematocrit 27.5 % (34.1-44.9); Hemoglobin 8.5 g/dL (11.2-15.7); Mean Corpuscular HGB Conc 30.9 g/dL (31.0-36.0); Mean Platelet Volume 10.4 fL (8.8-12.5); Platelet Count 403 K/mcL (140-440); RBC 2.99 M/mcL (3.59-5.38); Red Cell Distribution Width 15.1 % (11.5-14.5); WBC 13.6 K/mcL (4.5-11.0)
[2022-06-04 07:14] LABS: ALT/SGPT 8 U/L (<40); AST/SGOT 12 U/L (<32); Albumin 3.3 gm/dL (3.2-5.2); Albumin/Globulin Ratio 1.2 (1.0-2.3); Alkaline Phosphatase 113 U/L (39-117); Bilirubin,Direct < 0.2 mg/dL (0-0.3); Bilirubin,Total 0.4 mg/dL (0.1-1.0); Blood Urea Nitrogen 11 mg/dL (8-23); Calcium 8.5 mg/dL (8.6-10.4); Carbon Dioxide 22 mmol/L (22-30); Chloride 102 mmol/L (96-108); Globulin 2.8 gm/dL (2.2-3.7); Glomerular Filtration Rate 85; Glucose 105 mg/dL (70-105); Lactate Dehydrogenase 264 U/L (135-225); Phosphorous 2.3 mg/dL (2.5-4.5); Triglycerides 82 mg/dL (<150); Uric Acid 3.9 mg/dL (2.5-8.0)
[2022-06-04] MEDS: CARVEDILOL 6.25 MG TABLET PO SCH ×2 (07:36→18:00)
[2022-06-04] MEDS: APIXABAN 5 MG TABLET PO SCH ×2 (07:36→20:03)
[2022-06-04] MEDS: GABAPENTIN 100 MG CAPSULE PO SCH ×2 (07:37→20:04)
[2022-06-04] MEDS: PANTOPRAZOLE 40 MG VIAL IV SCH (07:37)
[2022-06-04] MEDS: amLODIPine 5 MG TABLET PO SCH (07:37)
[2022-06-04] MEDS: DULoxetine 30 MG CAPSULE PO SCH (07:40)
[2022-06-04] MEDS: LEVOTHYROXINE SODIUM 112 MCG TABLET PO SCH (07:40)
[2022-06-04] MEDS: 0.9 % SODIUM CHLORIDE 10 ML SYRINGE IV SCH ×2 (07:41→20:55)
[2022-06-04] MEDS: CHLORHEXIDINE GLUCONATE 1 ML ORAL.SOL SWABMOUTH SCH ×2 (07:41→20:04)
[2022-06-04] MEDS: busPIRone 15 MG TABLET PO SCH ×2 (07:41→20:11)
[2022-06-04] MEDS ORDERED: POTASSIUM CHLORIDE 40 MEQ in DEXTROSE 5% IN WATER 500 ML IV ONE (07:52)
--- NOTE | 2022-06-04 07:54 | Internal Med Progress Note ---
SUBJECTIVE Subjective Patient information: Note initiated : 06/04/22 at 7:46 am Service Date, if different from initiated Date: [] Patient: Johana Jimenez a 72 y/o F admitted on 06/02/22 for Shortness of breath. Chief Complaint: [] Interval history: History of present illness: Ms. Jimenez is a 72 year old F history of congestive heart failure, chronic back pain, proximal atrial fibrillation's, essential hypertensions, mixed dyslipidemia, hypothyroidism, presenting with shortness of breath. The following history is limited by clinical situations because by the time I arrived, she is already intubated and cannot give me any clinical history. Acc ording to report by the ED, the patient's became increasingly hypoxic, with increased work of breathing, and therefore she was being intubated in the ED. Significant for current clinical findings including imaging with both chest x- ray and CT angiogram of the lungs showing negative for pulmonary embolism but positive for parenchymal infiltrates as well as cardiomegaly and pleural effusion suggesting the presence of the pneumonia as well as consider heart failure with exacerbations. Labs significant for negative screening test for COVID pneumonia/influenza AMB/RSV. Positive for leukocytosis with WBC 13.5. Venous blood gas showing acidosis with pH 7.28, PCO2 and PO2 36.8 and 112, respectively. Bicarb 17.3. BNP 1452, procalcitonin level 41.43. Serum lactic acid 0.8. D-dimer elevated at 1.21. 4/ Patient currently on spontaneous breathing trial. Sedation held. Leukocytosis slightly worsened today. Anemia present with hemoglobin slight drop at 8.2. Monitor. Elevated procalcitonin. was agitated last evening. / poor sleep, agitated most of the night, multiple brown loose stools, extremely restless legs last night. She takes propranolol and received that but still has severe restlessness. She states her anxiety is high. Patient has cough Productive of white sputum.. Shortness of breath which she states worse with anxiety. Review of Systems: denies headache/fever/chills/nausea/vomiting/chest or abdominal pain/cough/dyspnea/diarrhea. Otherwise see above. PHYSICAL EXAM General: awake, No acute Distress Eyes/N/T: EOMI, no scleral icterus, PERRL, Head/Neck: neck supple, full ROM, CV: Irregular and mildly tachy, no murmurs, Pulm: better aeration, still diminished on right side, minimal rhonchi, no wheezing, Abd: soft, nontender, +BS x4 Ext: no clubbing/cyanosis, b/l LE trace edema, nontender Neuro: alert, no focal deficits, moves all extremities, sensations intact b/l upper/lower Psychiatric: Skin: warm/dry, normal color Constitutional Vitals: Vital Signs Temp Pulse Resp BP Pulse Ox O2 Del Method O2 Flow Rate 99.8 F H 92 H 16 135/62 100 Nasal Cannula 5 06/04/22 07:01 06/04/22 07:39 06/04/22 07:39 06/04/22 07:01 06/04/22 07:39 06/04/22 07:39 06/04/22 07:39 Period Temp Pulse Resp BP Sys/Neal Pulse Ox O2 Del Method O2 Flow Rate Last 24 Hr 99.1 F-100.0 F 75-110 16-36 100-190/47-94 87-100 Mechanical Ventilation-Oxymask 2-7 Intake and Output 06/03/22 06/04/22 06/04/22 19:59 03:59 11:59 Intake Total 1125 1130 615 Output Total 445 780 364 Balance 680 350 251 Weight 75.841 kg Intake & Output: Intake & Output 06/03/22 06/04/22 06/04/22 19:59 03:59 11:59 Intake Total 1125 1130 615 Output Total 445 780 364 Balance 680 350 251 Weight 75.841 kg Intake: IV 165 50 615 Zosyn 3.375 gm In Dextrose 5% 100 50 50 in Water 50 ml @ 100 mls/hr IV Q6H [facility] Rx#:[id number] Diprivan 1,000 mg In Premix 1 0 Bag @ 5 MCG/KG/MIN 3.81 mls/hr IV .Q24H [facility] Rx#:[id number] Vancomycin 1,500 mg In Sodium 500 Chloride 0.9% 500 ml @ 333.3 mls/hr IV Q12H [facility] Rx#: [id number] fentaNYL 2,500 MCG In Sodium 0 Chloride 0.9% 200 ml @ 25 MCG/ HR 2.5 mls/hr IV Q24H [facility] Rx#: [id number] Oral 960 1080 Output: Urine Catheter Amount 445 780 364 Other: Urine Appearance Clear Clear Clear Hematuria Hematuria Uretheral (Bautista) Clear Clear Urine Color Yellow Dark Deya Light Red Uretheral (Bautista) Dark Yellow Dark Deya Stool Size Large Large Stool Color Brown Brown Stool Consistency Loose Soft Loose # Bowel Movements 1 1 # of times incontinent of 1 1 Bowels OBJ DATA Labs 06/04/22 05:07 06/04/22 05:07 Labs: Abnormal Lab Results 06/04/22 06/04/22 06/04/22 05:07 05:07 05:07 WBC 13.6 H RBC 2.99 L Hgb 8.5 L Hct 27.5 L POC Hct MCHC 30.9 L RDW 15.1 H Immature Gran % (Auto) Neut % (Auto) Lymph % (Auto) Lymph # (Auto) [place] # (Auto) Immature Gran # Absolute Neutrophils D-Dimer POC pH POC pCO2 POC pO2 POC HCO3 POC ABG Base Excess ABG Lactic Acid POC VBG pH POC VBG pCO2 at Temp POC VBG pO2 POC VBG HCO3 POC VBG Total CO2 POC Venous O2 Sat POC VBG Base Excess Hgb O2 Saturation POC Sodium Potassium 3.0 L Carbon Dioxide POC Total CO2 Anion Gap POC BUN BUN POC Creatinine Glucose POC Glucose Calcium 8.5 L POC WB Ioniz Calcium Phosphorus 2.3 L Alkaline Phosphatase Lactate Dehydrogenase 264 H NT-Pro-B Natriuret Pep 2546.0 H Total Protein Albumin Procalcitonin 11.07 H 06/04/22 06/03/22 06/03/22 04:33 10:08 07:15 WBC RBC Hgb Hct POC Hct MCHC RDW Immature Gran % (Auto) Neut % (Auto) Lymph % (Auto) Lymph # (Auto) [place] # (Auto) Immature Gran # Absolute Neutrophils D-Dimer POC pH POC pCO2 34.0 L 34.7 L 34.3 L POC pO2 72 L 73 L POC HCO3 21.6 L POC ABG Base Excess -3.0 L ABG Lactic Acid 0.4 L POC VBG pH POC VBG pCO2 at Temp POC VBG pO2 POC VBG HCO3 POC VBG Total CO2 POC Venous O2 Sat POC VBG Base Excess Hgb O2 Saturation POC Sodium Potassium Carbon Dioxide POC Total CO2 Anion Gap POC BUN BUN POC Creatinine Glucose POC Glucose Calcium POC WB Ioniz Calcium Phosphorus Alkaline Phosphatase Lactate Dehydrogenase NT-Pro-B Natriuret Pep Total Protein Albumin Procalcitonin 06/03/22 06/03/22 06/03/22 05:18 05:17 05:17 WBC 13.3 H RBC 2.81 L Hgb 8.2 L Hct 26.0 L POC Hct MCHC RDW 15.0 H Immature Gran % (Auto) 0.7 H Neut % (Auto) 79.3 H Lymph % (Auto) 9.1 L Lymph # (Auto) 1.21 L [place] # (Auto) 1.34 H Immature Gran # 0.09 H Absolute Neutrophils 10.58 H D-Dimer POC pH POC pCO2 POC pO2 POC HCO3 POC ABG Base Excess ABG Lactic Acid POC VBG pH POC VBG pCO2 at Temp POC VBG pO2 POC VBG HCO3 POC VBG Total CO2 POC Venous O2 Sat POC VBG Base Excess Hgb O2 Saturation POC Sodium Potassium Carbon Dioxide 19 L POC Total CO2 Anion Gap 17.0 H POC BUN BUN POC Creatinine Glucose 109 H POC Glucose Calcium POC WB Ioniz Calcium Phosphorus Alkaline Phosphatase Lactate Dehydrogenase 265 H NT-Pro-B Natriuret Pep Total Protein 5.8 L Albumin 3.1 L Procalcitonin 37.51 H 06/02/22 06/02/22 06/02/22 10:37 05:36 05:36 WBC 11.6 H RBC 2.87 L Hgb 8.4 L Hct 25.6 L POC Hct MCHC RDW 14.7 H Immature Gran % (Auto) 0.9 H Neut % (Auto) 91.2 H Lymph % (Auto) 4.3 L Lymph # (Auto) 0.50 L [place] # (Auto) Immature Gran # 0.10 H Absolute Neutrophils 10.58 H D-Dimer POC pH POC pCO2 30.9 L POC pO2 POC HCO3 20.7 L POC ABG Base Excess -4.0 L ABG Lactic Acid POC VBG pH POC VBG pCO2 at Temp POC VBG pO2 POC VBG HCO3 POC VBG Total CO2 POC Venous O2 Sat POC VBG Base Excess Hgb O2 Saturation POC Sodium Potassium Carbon Dioxide 19 L POC Total CO2 22.0 L Anion Gap POC BUN BUN 26 H POC Creatinine Glucose 160 H POC Glucose Calcium POC WB Ioniz Calcium Phosphorus Alkaline Phosphatase 119 H Lactate Dehydrogenase NT-Pro-B Natriuret Pep Total Protein Albumin Procalcitonin 06/02/22 06/02/22 06/01/22 04:52 01:01 23:31 WBC RBC Hgb Hct POC Hct MCHC RDW Immature Gran % (Auto) Neut % (Auto) Lymph % (Auto) Lymph # (Auto) [place] # (Auto) Immature Gran # Absolute Neutrophils D-Dimer POC pH 7.34 L POC pCO2 POC pO2 156 H POC HCO3 19.9 L POC ABG Base Excess -6.0 L ABG Lactic Acid 0.4 L POC VBG pH 7.28 L POC VBG pCO2 at Temp 36.8 L POC VBG pO2 112 H POC VBG HCO3 17.3 L POC VBG Total CO2 18.0 L POC Venous O2 Sat 98.0 H POC VBG Base Excess -9.0 L Hgb O2 Saturation 99.0 H POC Sodium Potassium Carbon Dioxide POC Total CO2 21.0 L Anion Gap POC BUN BUN POC Creatinine Glucose POC Glucose Calcium POC WB Ioniz Calcium Phosphorus Alkaline Phosphatase Lactate Dehydrogenase NT-Pro-B Natriuret Pep 1452.0 H Total Protein Albumin Procalcitonin 06/01/22 06/01/22 06/01/22 22:43 21:17 21:10 WBC RBC Hgb Hct POC Hct 27.0 L MCHC RDW Immature Gran % (Auto) Neut % (Auto) Lymph % (Auto) Lymph # (Auto) [place] # (Auto) Immature Gran # Absolute Neutrophils D-Dimer POC pH POC pCO2 POC pO2 POC HCO3 POC ABG Base Excess ABG Lactic Acid POC VBG pH 7.31 L POC VBG pCO2 at Temp 37.3 L POC VBG pO2 POC VBG HCO3 18.8 L POC VBG Total CO2 20.0 L POC Venous O2 Sat POC VBG Base Excess -8.0 L Hgb O2 Saturation POC Sodium 132 L Potassium Carbon Dioxide POC Total CO2 21.0 L Anion Gap POC BUN 30 H BUN POC Creatinine 1.5 H Glucose POC Glucose 107 H Calcium POC WB Ioniz Calcium 1.14 L Phosphorus Alkaline Phosphatase Lactate Dehydrogenase NT-Pro-B Natriuret Pep Total Protein Albumin Procalcitonin 41.43 H 06/01/22 06/01/22 21:06 21:06 WBC 13.5 H RBC 3.04 L Hgb 8.7 L Hct 27.4 L POC Hct MCHC RDW 14.7 H Immature Gran % (Auto) 0.9 H Neut % (Auto) Lymph % (Auto) 8.2 L Lymph # (Auto) 1.10 L [place] # (Auto) 1.52 H Immature Gran # 0.12 H Absolute Neutrophils 10.24 H D-Dimer 1.21 H POC pH POC pCO2 POC pO2 POC HCO3 POC ABG Base Excess ABG Lactic Acid POC VBG pH POC VBG pCO2 at Temp POC VBG pO2 POC VBG HCO3 POC VBG Total CO2 POC Venous O2 Sat POC VBG Base Excess Hgb O2 Saturation POC Sodium Potassium Carbon Dioxide POC Total CO2 Anion Gap POC BUN BUN POC Creatinine Glucose POC Glucose Calcium POC WB Ioniz Calcium Phosphorus Alkaline Phosphatase Lactate Dehydrogenase NT-Pro-B Natriuret Pep Total Protein Albumin Procalcitonin Meds: Medications Albuterol/Ipratropium (Ipratropium/Albuterol 3 Ml Ampul.Neb) 3 ml NEB Q4HRT [facility] Last Admin: 06/04/22 07:37 Dose: 3 ml Amiodarone HCl (Amiodarone Hcl 200 Mg Tablet) 100 mg PO [facility] Last Admin: 06/03/22 20:03 Dose: 100 mg Amlodipine Besylate (Amlodipine 5 Mg Tablet) 5 mg PO QDAY [facility] Last Admin: 06/04/22 07:37 Dose: 5 mg Apixaban (Apixaban 5 Mg Tablet) 5 mg PO BID [facility] Last Admin: 06/04/22 07:36 Dose: 5 mg Atorvastatin Calcium (Atorvastatin 40 Mg Tablet) 80 mg PO [facility] Last Admin: 06/03/22 20:04 Dose: 80 mg Buspirone HCl (Buspirone 15 Mg Tablet) 15 mg PO BID [facility] Last Admin: 06/04/22 07:41 Dose: 15 mg [facility]vedilol ([facility] 6.25 Mg Tablet) [facility] Last Admin: 06/04/22 07:36 Dose: 6.25 mg Chlorhexidine Gluconate (Chlorhexidine Gluconate 1 Ml Oral.Ellen) 15 ml SWABMOUTH BID [facility] Last Admin: 06/04/22 07:41 Dose: Not Given Duloxetine HCl (Duloxetine 30 Mg Capsule) 60 mg PO DAILY [facility] Last Admin: 06/04/22 07:40 Dose: 60 mg Gabapentin (Gabapentin 100 Mg Capsule) 200 mg PO BID [facility] Last Admin: 06/04/22 07:37 Dose: 200 mg Piperacillin Sod/Tazobactam (Sod 3.375 gm/ Dextrose) 50 mls @ 100 mls/hr IV Q6H [facility]; Protocol Last Infusion: 06/04/22 06:15 Dose: Infused Propofol 1,000 mg/ Premix 100 mls @ 3.81 mls/hr IV .Q24H [facility]; Protocol Last Admin: 06/04/22 03:56 Dose: Not Given Acetaminophen (Ofirmev) 650 mg in 65 mls @ 130 mls/hr IV Q6HP PRN; Protocol PRN Reason: PAIN/FEVER > 101 Last Infusion: 06/04/22 04:14 Dose: Infused Fentanyl 2,500 mcg/ Sodium (Chloride) 250 mls @ 2.5 mls/hr IV Q24HP PRN; Protocol PRN Reason: Sedation Levothyroxine Sodium (Levothyroxine Sodium 112 Mcg Tablet) 112 mcg PO QDAY [facility] Last Admin: 06/04/22 07:40 Dose: 112 mcg Lidocaine (Lidocaine Patch) 1 patch TOPICAL DAILY@1000 [facility] Last Admin: 06/03/22 13:08 Dose: 1 patch Metoprolol Tartrate (Metoprolol Tartrate 5 Mg/5 Ml Vial) 5 mg IV Q5M PRN PRN Reason: Tachyarrhythmias Montelukast Sodium (Montelukast 10 Mg Tablet) 10 mg PO HS [facility] Last Admin: 06/03/22 20:03 Dose: 10 mg Nortriptyline HCl (Nortriptyline 25 Mg Capsule) 50 mg PO [facility] Last Admin: 06/03/22 20:04 Dose: 50 mg Olanzapine (Olanzapine 5 Mg Tablet) 5 mg PO HS PRN PRN Reason: Agitation Last Admin: 06/03/22 21:00 Dose: 5 mg Ondansetron HCl (Ondansetron 4 Mg/2 Ml Vial) 4 mg IV Q4-6HP PRN; Protocol PRN Reason: Nausea And Vomiting Pantoprazole Sodium ([facility]antoprazole 40 Mg [facility]ial) [facility] Admin: 06/04/22 07:37 Dose: 40 mg Promethazine HCl (Promethazine 25 Mg/Ml Vial) 12.5 mg IV Q4-6HP PRN; Protocol PRN Reason: Nausea And Vomiting Last Admin: 06/03/22 20:36 Dose: 12.5 mg Ropinirole HCl ([facility]opini[facility] 1 Mg Tablet) [facility] Last Admin: 06/03/22 20:04 Dose: 2 mg Sodium Chloride (0.9 % Sodium Chloride 10 Ml Syringe) 10 ml IV UD PRN PRN Reason: FLUSH Last Admin: 06/04/22 05:40 Dose: 10 ml Sodium Chloride (0.9 % Sodium Chloride 10 Ml Syringe) 10 ml IV Q12 [facility] Last Admin: 06/04/22 07:41 Dose: 10 ml Trazodone HCl (Trazodone Hcl 50 Mg Tablet) 50 mg PO HS [facility] Last Admin: 06/03/22 20:04 Dose: 50 mg A/P Narrative A/P Narrative: Assessment: *Acute hypoxic respiratory failure: 2/2 CAP & Pleural Effusion & ??CHF w/exacerbation: -Intubated (06/01); etubated (06/03) -on 2L NC *PNA(CAP): -flu/covid neg -PCT improving *Severe Sepsis: leukocytosis persistent,no bandemia *Right pleural effusion: *??Acute on chronic diastolic CHF: -echo from March with good EF, with some diastolic dysfxn *Paroxysmal atrial fibrillation: *Encephalopathy, metabolic: icu delerium add seroquel *Likely underlying Dementia vs MCI: pt on memantine at home *FAUSTINO on CKD III: *Metabolic acidosis: improving *Hypokalemia: *Anemia, acute on chronic: monitor *HTN/HLD: *Hypothyroidism: check tsh *Generalized weakness/deconditioning: *h/o chronic back pain: *Depression/anxiety: *RLS worsened: check tsh/iron studies P: -Zosyn, pending BC/SC, MRSA screen neg -Serial lactic acid , Procalcitonin level -O2 supp and wean as able -IS/Acapella -monitor renal fxn/uop/fluid balance -prn IV lasix -cont Norvasc -f/u cbc w/ auto diff in the morning to trend WBC, monitor chem and replace electorlytes prn -cont Amiodarone -cont statin -Continue psych meds, prn ativan -PT/OT -CM for placement needs -ppx: Eliquis / Protonix Code status: Ui Application Developer Spent With Patient Time: Total time spent is greater than 50% in coordination of care (as documented) at patient's floor/unit and/or counseling patient: Subsequent: Total time with patient: 50 - 65 Minutes QUALITY Stroke Symptom Onset Unknown: No VTE Deep Vein Thrombosis/Pulmonary Embolism Present on Admission: No Restraints Restraint In Place: No
[2022-06-04] MEDS: QUEtiapine 25 MG TABLET PO SCH ×2 (08:01→20:03)
[2022-06-04] MEDS: MEMANTINE 10 MG TABLET PO SCH ×2 (08:07→20:11)
[2022-06-04] MEDS: LIDOCAINE PATCH TOPICAL SCH (09:09)
[2022-06-04] MEDS: METHOCARBAMOL 500 MG TABLET PO PRN ×2 (09:38→19:07)
[2022-06-04 09:48] LABS: Anisocytosis 1+ (None Seen); Band Neutrophils % 1 % (0-10); Basophils % (Manual) 1 % (0-2); Eosinophils % (Manual) 11 % (0-7); Hypochromasia 1+ (None Seen); Lymphocytes % 7 % (15-49); Monocytes % (Manual) 5 % (1-12); Ovalocytes OCC (None Seen); Platelet Estimate NORMAL (Normal); Polychromasia OCC (None Seen); RBC Morphology ABNORMAL (Normal); Segmented Neutrophils % 75 % (38-78)
[2022-06-04] MEDS ORDERED: IPRATROPIUM/ALBUTEROL 3 ML AMPUL.NEB NEB PRN (09:49)
[2022-06-04] MEDS ORDERED: LORazepam 2 MG/ML VIAL IV ONE (10:13)
[2022-06-04] MEDS ORDERED: LORazepam 2 MG/ML VIAL IV PRN (10:23)
[2022-06-04] MEDS ORDERED: rOPINIRole 1 MG TABLET PO ONE (10:35)
[2022-06-04] MEDS ORDERED: GABAPENTIN 100 MG CAPSULE PO ONE (10:35)
[2022-06-04 13:22] LABS: Ferritin 251.1 ng/mL (30.0-400.0)
[2022-06-04 13:23] LABS: Thyroid Stimulating Hormone 3.3 uIU/mL (0.27-5.01)
[2022-06-04] MEDS: ATORVASTATIN 40 MG TABLET PO SCH (20:03)
[2022-06-04] MEDS: AMIODARONE HCL 200 MG TABLET PO SCH (20:03)
[2022-06-04] MEDS: MONTELUKAST 10 MG TABLET PO SCH (20:04)
[2022-06-04] MEDS: NORTRIPTYLINE 25 MG CAPSULE PO SCH (20:11)
[2022-06-04] MEDS: traZODone HCL 50 MG TABLET PO SCH (20:11)
[2022-06-04] MEDS: rOPINIRole 1 MG TABLET PO SCH (20:11)
[2022-06-05] MEDS: PIPERACILLIN SODIUM/TAZOBACTAM 3.375 GM in DEXTROSE 5% IN WATER 50 ML IV SCH ×5 (00:11→23:27)
[2022-06-05] MEDS: 0.9 % SODIUM CHLORIDE 10 ML SYRINGE IV PRN ×3 (00:12→23:27)
[2022-06-05] MEDS: IPRATROPIUM/ALBUTEROL 3 ML AMPUL.NEB NEB SCH (06:32)
[2022-06-05 07:00] LABS: Basophils # (Auto) 0.08 K/mcL (0.00-0.30); Basophils % (Auto) 0.9 % (0.0-2.0); Eosinophils % (Auto) 5.7 % (0.0-7.0); Hematocrit 26.7 % (34.1-44.9); Hemoglobin 8.2 g/dL (11.2-15.7); Lymphocytes # (Auto) 1.11 K/mcL (1.50-4.80); Lymphocytes % (Auto) 12.7 % (15.5-49.0); Mean Cell Volume 90.8 fL (80.0-100.0); Mean Corpuscular HGB Conc 30.7 g/dL (31.0-36.0); Mean Platelet Volume 10.2 fL (8.8-12.5); Monocytes # (Auto) 0.86 K/mcL (0.10-0.90); Monocytes % (Auto) 9.9 % (1.0-12.0); Neutrophils % (Auto) 69.7 % (38.0-78.0); Platelet Count 339 K/mcL (140-440); RBC 2.94 M/mcL (3.59-5.38); Red Cell Distribution Width 14.7 % (11.5-14.5); WBC 8.7 K/mcL (4.5-11.0)
[2022-06-05] MEDS: PANTOPRAZOLE 40 MG VIAL IV SCH (07:27)
[2022-06-05 07:36] LABS: ALT/SGPT 8 U/L (<40); AST/SGOT 14 U/L (<32); Albumin 3.2 gm/dL (3.2-5.2); Albumin/Globulin Ratio 1.1 (1.0-2.3); Alkaline Phosphatase 111 U/L (39-117); Bilirubin,Direct < 0.2 mg/dL (0-0.3); Bilirubin,Total 0.4 mg/dL (0.1-1.0); Blood Urea Nitrogen 6 mg/dL (8-23); Calcium 8.8 mg/dL (8.6-10.4); Carbon Dioxide 25 mmol/L (22-30); Chloride 107 mmol/L (96-108); Globulin 2.8 gm/dL (2.2-3.7); Glomerular Filtration Rate 90; Glucose 105 mg/dL (70-105); Lactate Dehydrogenase 301 U/L (135-225); Phosphorous 2.9 mg/dL (2.5-4.5); Triglycerides 73 mg/dL (<150); Uric Acid 2.6 mg/dL (2.5-8.0)
--- NOTE | 2022-06-05 07:53 | Internal Med Progress Note ---
SUBJECTIVE Subjective Patient information: Note initiated : 06/05/22 at 7:49 am Service Date, if different from initiated Date: [] Patient: Johana Jimenez a 72 y/o F admitted on 06/02/22 for Shortness of breath. Chief Complaint: [] Interval history: History of present illness: Ms. Jimenez is a 72 year old F history of congestive heart failure, chronic back pain, proximal atrial fibrillation's, essential hypertensions, mixed dyslipidemia, hypothyroidism, presenting with shortness of breath. The following history is limited by clinical situations because by the time I arrived, she is already intubated and cannot give me any clinical history. Acc ording to report by the ED, the patient's became increasingly hypoxic, with increased work of breathing, and therefore she was being intubated in the ED. Significant for current clinical findings including imaging with both chest x- ray and CT angiogram of the lungs showing negative for pulmonary embolism but positive for parenchymal infiltrates as well as cardiomegaly and pleural effusion suggesting the presence of the pneumonia as well as consider heart failure with exacerbations. Labs significant for negative screening test for COVID pneumonia/influenza AMB/RSV. Positive for leukocytosis with WBC 13.5. Venous blood gas showing acidosis with pH 7.28, PCO2 and PO2 36.8 and 112, respectively. Bicarb 17.3. BNP 1452, procalcitonin level 41.43. Serum lactic acid 0.8. D-dimer elevated at 1.21. 4/3 Patient currently on spontaneous breathing trial. Sedation held. Leukocytosis slightly worsened today. Anemia present with hemoglobin slight drop at 8.2. Monitor. Elevated procalcitonin. was agitated last evening. 4/4 poor sleep, agitated most of the night, multiple brown loose stools, extremely restless legs last night. She takes propranolol and received that but still has severe restlessness. She states her anxiety is high. Patient has cough Productive of white sputum.. Shortness of breath which she states worse with anxiety. 4/5 Patient feeling much better today. Is able to sleep better yesterday. Patient on room air currently while awake. Hemoglobin 8.2 mild drop from yesterday but similar to the day before. Patient's hemoglobin was 8.7 on admission. 9.8 in May. Review of Systems: denies headache/fever/chills/nausea/vomiting/chest or abdominal pain/coug h/dyspnea/diarrhea. Otherwise see above. PHYSICAL EXAM General: awake, No acute Distress Eyes/N/T: EOMI, no scleral icterus, PERRL, Head/Neck: neck supple, full ROM, CV: Irregular, no murmurs, Pulm: better aeration, still diminished on right side, minimal rhonchi, no wheezing, Abd: soft, nontender, +BS x4 Ext: no clubbing/cyanosis, b/l LE trace edema, nontender Neuro: alert, no focal deficits, moves all extremities, sensations intact b/l upper/lower Psychiatric: Skin: warm/dry, normal color Constitutional Vitals: Vital Signs Temp Pulse Resp BP Pulse Ox O2 Del Method O2 Flow Rate 98.2 F 80 20 134/114 96 Nasal Cannula 0.5 06/05/22 04:01 06/05/22 06:15 06/05/22 06:15 06/05/22 06:03 06/05/22 06:15 06/05/22 06:15 06/05/22 06:15 Period Temp Pulse Resp BP Sys/Neal Pulse Ox O2 Del Method O2 Flow Rate Last 24 Hr 98.2 F-100.2 F 80-114 16-33 133-167/57-144 88-96 Nasal Cannula-Room Air 0.5-3 Intake and Output 06/04/22 06/05/22 06/05/22 19:59 03:59 11:59 Intake Total 2180 115 410 Output Total 1390 340 440 Balance 790 -225 -30 Weight 122.107 kg Intake & Output: Intake & Output 06/04/22 06/05/22 06/05/22 19:59 03:59 11:59 Intake Total 2180 115 410 Output Total 1390 340 440 Balance 790 -225 -30 Weight 122.107 kg Intake: IV 620 115 50 Zosyn 3.375 gm In Dextrose 5% 100 50 50 in Water 50 ml @ 100 mls/hr IV Q6H [facility] Rx#:[id number] Potassium Chloride 40 Meq In 520 Dextrose 5% in Water 500 ml @ 130 mls/hr IV ONCE ONE Rx#: [id number] Oral 1560 360 Output: Urine Catheter Amount 1390 340 440 Other: Meal Dinner Percent of Meal Consumed 100% Feeding Ability Independent Urine Appearance Hematuria Hematuria Clear Uretheral (Bautista) Hematuria Urine Color Light Red Tea Colored Light Hiko Uretheral (Bautista) Light Red Stool Size Moderate Small Stool Color Brown Brown Green Green Stool Consistency Loose Loose # Bowel Movements 1 1 OBJ DATA Labs 06/05/22 05:24 06/05/22 05:24 Labs: Abnormal Lab Results 06/05/22 06/05/22 06/04/22 05:24 05:24 10:50 WBC RBC 2.94 L Hgb 8.2 L Hct 26.7 L MCHC 30.7 L RDW 14.7 H Immature Gran % (Auto) 1.1 H Neut % (Auto) Lymph % (Auto) 12.7 L Lymph # (Auto) 1.11 L [place] # (Auto) Lymphocytes % Eosinophils % (Manual) Immature Gran # 0.10 H Absolute Neutrophils RBC Morphology Polychromasia Hypochromasia Anisocytosis Ovalocytes POC pCO2 POC pO2 POC HCO3 POC Total CO2 POC ABG Base Excess ABG Lactic Acid Potassium Carbon Dioxide Anion Gap BUN 6 L Glucose Calcium Phosphorus Iron 13 L Transferrin % Sat 5 L Lactate Dehydrogenase 301 H NT-Pro-B Natriuret Pep Total Protein Albumin Procalcitonin 06/04/22 06/04/22 06/04/22 05:07 05:07 05:07 WBC 13.6 H RBC 2.99 L Hgb 8.5 L Hct 27.5 L MCHC 30.9 L RDW 15.1 H Immature Gran % (Auto) Neut % (Auto) Lymph % (Auto) Lymph # (Auto) [place] # (Auto) Lymphocytes % 7 L Eosinophils % (Manual) 11 H Immature Gran # Absolute Neutrophils RBC Morphology Abnormal A Polychromasia Occ A Hypochromasia 1+ A Anisocytosis 1+ A Ovalocytes Occ A POC pCO2 POC pO2 POC HCO3 POC Total CO2 POC ABG Base Excess ABG Lactic Acid Potassium 3.0 L Carbon Dioxide Anion Gap BUN Glucose Calcium 8.5 L Phosphorus 2.3 L Iron Transferrin % Sat Lactate Dehydrogenase 264 H NT-Pro-B Natriuret Pep 2546.0 H Total Protein Albumin Procalcitonin 11.07 H 06/04/22 06/03/22 06/03/22 04:33 10:08 07:15 WBC RBC Hgb Hct MCHC RDW Immature Gran % (Auto) Neut % (Auto) Lymph % (Auto) Lymph # (Auto) [place] # (Auto) Lymphocytes % Eosinophils % (Manual) Immature Gran # Absolute Neutrophils RBC Morphology Polychromasia Hypochromasia Anisocytosis Ovalocytes POC pCO2 34.0 L 34.7 L 34.3 L POC pO2 72 L 73 L POC HCO3 21.6 L POC Total CO2 POC ABG Base Excess -3.0 L ABG Lactic Acid 0.4 L Potassium Carbon Dioxide Anion Gap BUN Glucose Calcium Phosphorus Iron Transferrin % Sat Lactate Dehydrogenase NT-Pro-B Natriuret Pep Total Protein Albumin Procalcitonin 06/03/22 06/03/22 06/03/22 05:18 05:17 05:17 WBC 13.3 H RBC 2.81 L Hgb 8.2 L Hct 26.0 L MCHC RDW 15.0 H Immature Gran % (Auto) 0.7 H Neut % (Auto) 79.3 H Lymph % (Auto) 9.1 L Lymph # (Auto) 1.21 L [place] # (Auto) 1.34 H Lymphocytes % Eosinophils % (Manual) Immature Gran # 0.09 H Absolute Neutrophils 10.58 H RBC Morphology Polychromasia Hypochromasia Anisocytosis Ovalocytes POC pCO2 POC pO2 POC HCO3 POC Total CO2 POC ABG Base Excess ABG Lactic Acid Potassium Carbon Dioxide 19 L Anion Gap 17.0 H BUN Glucose 109 H Calcium Phosphorus Iron Transferrin % Sat Lactate Dehydrogenase 265 H NT-Pro-B Natriuret Pep Total Protein 5.8 L Albumin 3.1 L Procalcitonin 37.51 H 06/02/22 10:37 WBC RBC Hgb Hct MCHC RDW Immature Gran % (Auto) Neut % (Auto) Lymph % (Auto) Lymph # (Auto) [place] # (Auto) Lymphocytes % Eosinophils % (Manual) Immature Gran # Absolute Neutrophils RBC Morphology Polychromasia Hypochromasia Anisocytosis Ovalocytes POC pCO2 30.9 L POC pO2 POC HCO3 20.7 L POC Total CO2 22.0 L POC ABG Base Excess -4.0 L ABG Lactic Acid Potassium Carbon Dioxide Anion Gap BUN Glucose Calcium Phosphorus Iron Transferrin % Sat Lactate Dehydrogenase NT-Pro-B Natriuret Pep Total Protein Albumin Procalcitonin Meds: Medications Albuterol/Ipratropium (Ipratropium/Albuterol 3 Ml Ampul.Neb) 3 ml NEB Q8 [facility] Last Admin: 06/05/22 06:32 Dose: 3 ml Albuterol/Ipratropium (Ipratropium/Albuterol 3 Ml Ampul.Neb) 3 ml NEB Q4HP PRN PRN Reason: Shortness Of Breath Amiodarone HCl (Amiodarone Hcl 200 Mg Tablet) 100 mg PO [facility] Last Admin: 06/04/22 20:03 Dose: 100 mg Amlodipine Besylate (Amlodipine 5 Mg Tablet) 5 mg PO QDAY [facility] Last Admin: 06/04/22 07:37 Dose: 5 mg Apixaban (Apixaban 5 Mg Tablet) 5 mg PO BID [facility] Last Admin: 06/04/22 20:03 Dose: 5 mg Atorvastatin Calcium (Atorvastatin 40 Mg Tablet) 80 mg PO [facility] Last Admin: 06/04/22 20:03 Dose: 80 mg Buspirone HCl (Buspirone 15 Mg Tablet) 15 mg PO BID [facility] Last Admin: 06/04/22 20:11 Dose: 15 mg Carvedilol (Carvedilol 6.25 Mg Tablet) [facility] Last Admin: 06/04/22 18:00 Dose: 6.25 mg Chlorhexidine Gluconate (Chlorhexidine Gluconate 1 Ml Oral.Ellen) 15 ml SWABMOUTH BID [facility] Last Admin: 06/04/22 20:04 Dose: 15 ml Duloxetine HCl (Duloxetine 30 Mg Capsule) 60 mg PO DAILY [facility] Last Admin: 06/04/22 07:40 Dose: 60 mg Gabapentin (Gabapentin 100 Mg Capsule) 200 mg PO BID [facility] Last Admin: 06/04/22 20:04 Dose: 200 mg Piperacillin Sod/Tazobactam (Sod 3.375 gm/ Dextrose) 50 mls @ 100 mls/hr IV Q6H [facility]; Protocol Last Infusion: 06/05/22 06:00 Dose: Infused Acetaminophen (Ofirmev) 650 mg in 65 mls @ 130 mls/hr IV Q6HP PRN; Protocol PRN Reason: PAIN/FEVER > 101 Last Infusion: 06/04/22 20:55 Dose: Infused Levothyroxine Sodium (Levothyroxine Sodium 112 Mcg Tablet) 112 mcg PO QDAY [facility] Last Admin: 06/04/22 07:40 Dose: 112 mcg Lidocaine (Lidocaine Patch) 1 patch TOPICAL DAILY@1000 [facility] Last Admin: 06/04/22 09:09 Dose: 1 patch Lorazepam (Lorazepam 2 Mg/Ml Vial) 0.5 mg IV Q4-6HP PRN PRN Reason: ANXIETY/SEDATION Memantine (Memantine 10 Mg Tablet) 10 mg PO BID [facility] Last Admin: 06/04/22 20:11 Dose: 10 mg Methocarbamol (Methocarbamol 500 Mg Tablet) 500 mg PO TIDP PRN PRN Reason: spasm Last Admin: 06/04/22 19:07 Dose: 500 mg Metoprolol Tartrate (Metoprolol Tartrate 5 Mg/5 Ml Vial) 5 mg IV Q5M PRN PRN Reason: Tachyarrhythmias Montelukast Sodium (Montelukast 10 Mg Tablet) 10 mg PO HS [facility] Last Admin: 06/04/22 20:04 Dose: 10 mg Nortriptyline HCl (Nortriptyline 25 Mg Capsule) 50 mg PO HS [facility] Last Admin: 06/04/22 20:11 Dose: 50 mg Olanzapine (Olanzapine 5 Mg Tablet) 5 mg PO HS PRN PRN Reason: Agitation Last Admin: 06/03/22 21:00 Dose: 5 mg Ondansetron HCl (Ondansetron 4 Mg/2 Ml Vial) 4 mg IV Q4-6HP PRN; Protocol PRN Reason: Nausea And Vomiting Pantoprazole Sodium (Pantoprazole 40 Mg Vial) 40 mg IV QAMAC [facility] Last Admin: 06/05/22 07:27 Dose: 40 mg Promethazine HCl (Promethazine 25 Mg/Ml Vial) 12.5 mg IV Q4-6HP PRN; Protocol PRN Reason: Nausea And Vomiting Last Admin: 06/03/22 20:36 Dose: 12.5 mg Quetiapine Fumarate (Quetiapine 25 Mg Tablet) 25 mg PO BID [facility] Last Admin: 06/04/22 20:03 Dose: 25 mg Ropinirole HCl (Ropinirole 1 Mg Tablet) 2 mg PO QHS [facility] Last Admin: 06/04/22 20:11 Dose: 2 mg Sodium Chloride (0.9 % Sodium Chloride 10 Ml Syringe) 10 ml IV UD PRN PRN Reason: FLUSH Last Admin: 06/05/22 00:50 Dose: 10 ml Sodium Chloride (0.9 % Sodium Chloride 10 Ml Syringe) 10 ml IV Q12 [facility] Last Admin: 06/04/22 20:55 Dose: 10 ml Trazodone HCl (Trazodone Hcl 50 Mg Tablet) 50 mg PO HS [facility] Last Admin: 04/04/23 20:11 Dose: 50 mg A/P Narrative A/P Narrative: Assessment: *Acute hypoxic respiratory failure: 2/2 CAP & Pleural Effusion & ??CHF w/exacerbation: -Intubated (06/01); extubated (06/03) -trial on room air today *PNA(CAP): -flu/covid neg -PCT improving *Severe Sepsis: leukocytosis now resolved,no bandemia - *Right pleural effusion: *??Acute on chronic diastolic CHF: -echo from March with good EF, with some diastolic dysfxn *Paroxysmal atrial fibrillation: *Encephalopathy, metabolic: icu delerium added seroquel. now improving *Likely underlying Dementia vs MCI: pt on memantine at home *FAUSTINO on CKD III: improved *Metabolic acidosis: improved *Hypokalemia/hypophos: improved *Anemia, acute on chronic: monitor *HTN/HLD: *Hypothyroidism: tsh wnl *Generalized weakness/deconditioning: *h/o chronic back pain: *Depression/anxiety: *RLS worsened: check tsh/iron studies P: -Zosyn, vanc d/c'd, pending final BC/SC, MRSA screen neg -Procalcitonin level -O2 supp and wean as able -IS/Acapella -monitor renal fxn/uop/fluid balance -prn IV lasix -cont Norvasc -f/u cbc w/ auto diff in the morning to trend WBC, monitor chem and replace electorlytes prn -cont Amiodarone -cont statin -Continue psych meds, prn ativan -PT/OT -CM for placement needs -ppx: Eliquis / Protonix Code status: Vinegar Maker Spent With Patient Time: Total time spent is greater than 50% in coordination of care (as documented) at patient's floor/unit and/or counseling patient: Subsequent: Total time with patient: 50 - 65 Minutes QUALITY Stroke Symptom Onset Unknown: No VTE Deep Vein Thrombosis/Pulmonary Embolism Present on Admission: No Restraints Restraint In Place: No
[2022-06-05] MEDS: CARVEDILOL 6.25 MG TABLET PO SCH ×2 (08:13→17:28)
[2022-06-05] MEDS: DULoxetine 30 MG CAPSULE PO SCH (08:14)
[2022-06-05] MEDS: CHLORHEXIDINE GLUCONATE 1 ML ORAL.SOL SWABMOUTH SCH ×2 (08:14→20:45)
[2022-06-05] MEDS: GABAPENTIN 100 MG CAPSULE PO SCH ×2 (08:14→20:44)
[2022-06-05] MEDS: busPIRone 15 MG TABLET PO SCH ×2 (08:14→20:42)
[2022-06-05] MEDS: APIXABAN 5 MG TABLET PO SCH ×2 (08:14→20:44)
[2022-06-05] MEDS: MEMANTINE 10 MG TABLET PO SCH ×2 (08:14→20:44)
[2022-06-05] MEDS: amLODIPine 5 MG TABLET PO SCH (08:14)
[2022-06-05] MEDS: 0.9 % SODIUM CHLORIDE 10 ML SYRINGE IV SCH ×2 (08:15→20:45)
[2022-06-05] MEDS: LEVOTHYROXINE SODIUM 112 MCG TABLET PO SCH (08:15)
[2022-06-05] MEDS: QUEtiapine 25 MG TABLET PO SCH (08:15)
--- NOTE | 2022-06-05 11:10 | Discharge Summary ---
Discharge Provider Provider IMPORTANT FOLLOW-UP INFORMATION FOR PCP: Patient information: Note initiated : 06/05/22 at 11:08 am Service Date, if different from initiated Date: [] Patient: Johana Jimenez a 72 y/o F admitted on 06/02/22 for Shortness of breath. Chief Complaint: [] Date of admission: 06/02/22 03:23 Discharge date: 06/06/22 Primary care physician: Wellington Rocha DO Consults: 06/02/22 Consult to Physician [CONS] Stat Comment: Consulting Provider: Joseph Ramirez Reason For Exam: Physician to Consult COURSE Hospital Course Hospital course: History of present illness: Ms. Jimenez is a 72 year old F history of congestive heart failure, chronic back pain, proximal atrial fibrillation's, essential hypertensions, mixed dyslipidemia, hypothyroidism, presenting with shortness of breath. The following history is limited by clinical situations because by the time I arrived, she is already intubated and cannot give me any clinical history. According to report by the ED, the patient's became increasingly hypoxic, with increased work of breathing, and therefore she was being intubated in the ED. Significant for current clinical findings including imaging with both chest x- ray and CT angiogram of the lungs showing negative for pulmonary embolism but positive for parenchymal infiltrates as well as cardiomegaly and pleural effusion suggesting the presence of the pneumonia as well as consider heart failure with exacerbations. Labs significant for negative screening test for COVID pneumonia/influenza AMB/RSV. Positive for leukocytosis with WBC 13.5. Venous blood gas showing acidosis with pH 7.28, PCO2 and PO2 36.8 and 112, respectively. Bicarb 17.3. BNP 1452, procalcitonin level 41.43. Serum lactic acid 0.8. D-dimer elevated at 1.21. 4/3 Patient currently on spontaneous breathing trial. Sedation held. Leukocytosis slightly worsened today. Anemia present with hemoglobin slight drop at 8.2. Monitor. Elevated procalcitonin. was agitated last evening. 4/4 poor sleep, agitated most of the night, multiple brown loose stools, extremely restless legs last night. She takes propranolol and received that but still has severe restlessness. She states her anxiety is high. Patient has cough Productive of white sputum.. Shortness of breath which she states worse with anxiety. 4/5 Patient feeling much better today. Is able to sleep better yesterday. Patient on room air currently while awake. Hemoglobin 8.2 mild drop from yesterday but similar to the day before. Patient's hemoglobin was 8.7 on admission. 9.8 in May. 06/06 Patient continues to feel much better. Working with physical therapy and ambulating. Patient says she has a lot of support at home and feels comfortable going home with home health as opposed to a rehab failure. She is on room air. Assessment: *Acute hypoxic respiratory failure: 2/ CAP & Pleural Effusion & ??CHF w/exacerbation: *PNA(CAP): *Severe Sepsis: *Right pleural effusion: *??Acute on chronic diastolic CHF: -echo from March with good EF, with some diastolic dysfxn *Paroxysmal atrial fibrillation: *Encephalopathy, metabolic: *Likely underlying Dementia vs MCI: pt on memantine at home *FAUSTINO on CKD III: *Metabolic acidosis: *Hypokalemia/hypophos: *Anemia, acute on chronic: *HTN/HLD: *Hypothyroidism: tsh wnl *Generalized weakness/deconditioning: *h/o chronic back pain: *Depression/anxiety: *RLS worsened: P: -finish abx Discharge diagnosis: Pneumonia hypoxia sepsis effusion Secondary discharge diagnosis: Heart failure paroxysmal A-fib Encephalopathy dementia likely or mild cognitive impairment acute kidney injury on chronic kidney disease metabolic acidosis electrolyte disorder anemia hypertension hypothyroidism generalized weakness chronic pain depression anxiety restless leg Time Spent with Patient Time attestation: Total time spent providing and/or coordinating discharge services: Time spent: Greater than 30 minutes EXAM Constitutional Vitals: Temp Pulse Resp BP Pulse Ox O2 Del Method O2 Flow Rate 98.5 F 89 21 137/75 90 Room Air 0.5 06/05/22 08:01 06/05/22 10:01 06/05/22 10:01 06/05/22 10:01 06/05/22 10:01 06/05/22 10:01 06/05/22 06:15 Discharge Data Data Completed and Pending Labs on day of discharge: Labs from last 24 hours 06/05/22 06/05/22 06/04/22 05:24 05:24 10:50 WBC 8.7 RBC 2.94 L Hgb 8.2 L Hct 26.7 L MCV 90.8 MCH 27.9 MCHC 30.7 L RDW 14.7 H Plt Count 339 MPV 10.2 Immature Gran % (Auto) 1.1 H Neut % (Auto) 69.7 Lymph % (Auto) 12.7 L [place] % (Auto) 9.9 Eos % (Auto) 5.7 Baso % (Auto) 0.9 Lymph # (Auto) 1.11 L [place] # (Auto) 0.86 Eos # (Auto) 0.50 Baso # (Auto) 0.08 Immature Gran # 0.10 H Absolute Neutrophils 6.07 Sodium 144 Potassium 3.4 Chloride 107 Carbon Dioxide 25 Anion Gap 12.0 BUN 6 L Creatinine 0.6 GFR Calculation 90 Glucose 105 Uric Acid 2.6 Calcium 8.8 Phosphorus 2.9 Magnesium 1.9 Iron TIBC Unsat Iron Binding Transferrin % Sat Ferritin Total Bilirubin 0.4 Direct Bilirubin < 0.2 GGT 22 AST 14 ALT 8 Alkaline Phosphatase 111 Lactate Dehydrogenase 301 H Total Protein 6.0 Albumin 3.2 Globulin 2.8 Albumin/Globulin Ratio 1.1 Triglycerides 73 TSH Miscellaneous Test Cancelled 06/04/22 10:50 WBC RBC Hgb Hct MCV MCH MCHC RDW Plt Count MPV Immature Gran % (Auto) Neut % (Auto) Lymph % (Auto) [place] % (Auto) Eos % (Auto) Baso % (Auto) Lymph # (Auto) [place] # (Auto) Eos # (Auto) Baso # (Auto) Immature Gran # Absolute Neutrophils Sodium Potassium Chloride Carbon Dioxide Anion Gap BUN Creatinine GFR Calculation Glucose Uric Acid Calcium Phosphorus Magnesium Iron 13 L TIBC 283 Unsat Iron Binding 270 Transferrin % Sat 5 L Ferritin 251.1 Total Bilirubin Direct Bilirubin GGT AST ALT Alkaline Phosphatase Lactate Dehydrogenase Total Protein Albumin Globulin Albumin/Globulin Ratio Triglycerides TSH 3.30 Miscellaneous Test Preliminary micro results at discharge 06/01/22 23:25 Blood Culture - Preliminary Blood 06/01/22 23:21 Blood Culture - Preliminary Blood 06/02/22 19:19 Gram Stain - Preliminary Sputum source - Aspirate Sputum Culture - Preliminary Discharge Plan Patient/Caregiver Discharge Instructions Activity: increase activity as tolerated Diet: Regular Diet Prescriptions: New cefpodoxime 200 mg tablet 200 mg PO BID Qty: 6 0RF Rx Instructions: must administer with a meal/food Continued ropinirole 2 mg tablet 4 mg PO QHS Rx Instructions: administer 1-3 hours before bedtime furosemide 20 mg tablet 40 mg PO QDAY docusate sodium 100 mg capsule 100 mg PO QDAY amlodipine 5 mg tablet 5 mg PO QDAY memantine 5 mg tablet 10 mg PO BID loratadine 10 mg tablet 10 mg PO QDAY spironolactone 25 MG tablet 25 mg PO DAILY atorvastatin 80 MG tablet 80 mg PO HS montelukast 10 MG tablet 10 mg PO HS nortriptyline 50 MG capsule 50 mg PO HS amiodarone 100 MG tablet 100 mg PO HS omeprazole 20 MG capsule,delayed release(DR/EC) 20 mg PO DAILY ketorolac 5 ML drops 1 gtt BOTH EYES PRN PRN (Reason: Dry Eyes) duloxetine 60 MG capsule, delayed rel sprinkle 60 mg PO DAILY buspirone 15 mg tablet 15 mg PO BID carvedilol 6.25 mg tablet 6.25 mg PO BID trazodone 50 mg tablet 50 mg PO HS gabapentin 100 mg capsule 200 mg PO BID levothyroxine 112 mcg tablet 112 mcg PO QDAY Eliquis 5 mg Tablet 5 mg PO BID potassium chloride 20 mEq tablet extended release 20 meq PO QDAY methocarbamol 500 mg tablet 500 mg PO TID lidocaine [Lidoderm] 5 % adhesive patch,medicated 1 patch topical QDAY Qty: 15 0RF Rx Instructions: leave on most painful area for up to 12 hrs Follow Up Plan Follow up with: Wellington Rocha DO [Primary Care Provider] - Patient Disposition: Xfer SNF Prognosis: Undetermined Rehab Potential: Fair I certify that the patient requires SNF services: Yes Overall status at discharge: patient is progressing back to baseline Discharge Orders: Discharge Order (Routine); Ordered 06/06/22 [facility] Thrombosis/Pulmonary Embolism Present on Admission: No
[2022-06-05] MEDS ORDERED: POTASSIUM CHLORIDE 20 MEQ TABLET PO SCH (11:51)
[2022-06-05] MEDS: LIDOCAINE PATCH TOPICAL SCH (11:53)
[2022-06-05] MEDS: METHOCARBAMOL 500 MG TABLET PO PRN ×2 (13:10→21:18)
[2022-06-05] MEDS: AMIODARONE HCL 200 MG TABLET PO SCH (20:42)
[2022-06-05] MEDS: NORTRIPTYLINE 25 MG CAPSULE PO SCH (20:43)
[2022-06-05] MEDS: rOPINIRole 1 MG TABLET PO SCH (20:43)
[2022-06-05] MEDS: ATORVASTATIN 40 MG TABLET PO SCH (20:44)
[2022-06-05] MEDS: MONTELUKAST 10 MG TABLET PO SCH (20:44)
[2022-06-05] MEDS: traZODone HCL 50 MG TABLET PO SCH (20:44)
[2022-06-05] MEDS ORDERED: QUEtiapine 25 MG TABLET PO SCH (21:00)
[2022-06-06] MEDS: ACETAMINOPHEN 650 MG/65 ML BAG IV PRN ×2 (02:39→08:27)
[2022-06-06] MEDS: 0.9 % SODIUM CHLORIDE 10 ML SYRINGE IV PRN ×2 (02:42→05:39)
[2022-06-06] MEDS: PIPERACILLIN SODIUM/TAZOBACTAM 3.375 GM in DEXTROSE 5% IN WATER 50 ML IV SCH ×2 (05:39→12:31)
[2022-06-06] MEDS ORDERED: PANTOPRAZOLE 40 MG PACKET PO SCH (07:30)
--- NOTE | 2022-06-06 07:38 | Internal Med Progress Note ---
SUBJECTIVE Subjective Patient information: Note initiated : 06/06/22 at 7:36 am Service Date, if different from initiated Date: [] Patient: Johana Jimenez a 72 y/o F admitted on 06/02/22 for Shortness of breath. Chief Complaint: [] Interval history: History of present illness: Ms. Jimenez is a 72 year old F history of congestive heart failure, chronic back pain, proximal atrial fibrillation's, essential hypertensions, mixed dyslipidemia, hypothyroidism, presenting with shortness of breath. The following history is limited by clinical situations because by the time I arrived, she is already intubated and cannot give me any clinical history. Acc ording to report by the ED, the patient's became increasingly hypoxic, with increased work of breathing, and therefore she was being intubated in the ED. Significant for current clinical findings including imaging with both chest x- ray and CT angiogram of the lungs showing negative for pulmonary embolism but positive for parenchymal infiltrates as well as cardiomegaly and pleural effusion suggesting the presence of the pneumonia as well as consider heart failure with exacerbations. Labs significant for negative screening test for COVID pneumonia/influenza AMB/RSV. Positive for leukocytosis with WBC 13.5. Venous blood gas showing acidosis with pH 7.28, PCO2 and PO2 36.8 and 112, respectively. Bicarb 17.3. BNP 1452, procalcitonin level 41.43. Serum lactic acid 0.8. D-dimer elevated at 1.21. 4/ Patient currently on spontaneous breathing trial. Sedation held. Leukocytosis slightly worsened today. Anemia present with hemoglobin slight drop at 8.2. Monitor. Elevated procalcitonin. was agitated last evening. 4/4 poor sleep, agitated most of the night, multiple brown loose stools, extremely restless legs last night. She takes propranolol and received that but still has severe restlessness. She states her anxiety is high. Patient has cough Productive of white sputum.. Shortness of breath which she states worse with anxiety. 06/05 Patient feeling much better today. Is able to sleep better yesterday. Patient on room air currently while awake. Hemoglobin 8.2 mild drop from yesterday but similar to the day before. Patient's hemoglobin was 8.7 on admission. 9.8 in May. / Patient continues to feel much better. Working with physical therapy and ambulating. Patient says she has a lot of support at home and feels comfortable going home with home health as opposed to a rehab failure. She is on room air. Review of Systems: denies headache/fever/chills/nausea/vomiting/chest or abdominal pain/cough/dyspnea/diarrhea. Otherwise see above. PHYSICAL EXAM General: awake, No acute Distress Eyes/N/T: EOMI, no scleral icterus, PERRL, Head/Neck: neck supple, full ROM, CV: Irregular, no murmurs, Pulm: better aeration, still diminished on right side, minimal rhonchi, no wheezing, Abd: soft, nontender, +BS x4 Ext: no clubbing/cyanosis, b/l LE trace edema, nontender Neuro: alert, no focal deficits, moves all extremities, sensations intact b/l upper/lower Psychiatric: Skin: warm/dry, normal color Constitutional Vitals: Vital Signs Temp Pulse Resp BP Pulse Ox O2 Del Method O2 Flow Rate 98.0 F 96 H 20 148/87 94 Nasal Cannula 3 06/06/22 03:01 06/06/22 04:00 06/06/22 04:00 06/06/22 03:01 06/06/22 04:00 06/06/22 04:00 06/06/22 04:00 Period Temp Pulse Resp BP Sys/Neal Pulse Ox O2 Del Method O2 Flow Rate Last 24 Hr 97.5 F-98.5 F 84-101 15-26 129-169/62-87 90-95 Nasal Cannula- Room Air 3-3 Intake and Output 06/05/22 06/06/22 06/06/22 19:59 03:59 11:59 Intake Total 1220 515 50 Output Total 625 650 250 Balance 595 -135 -200 Weight 121.761 kg Intake & Output: Intake & Output 06/05/22 06/06/22 06/06/22 19:59 03:59 11:59 Intake Total 1220 515 50 Output Total 625 650 250 Balance 595 -135 -200 Weight 121.761 kg Intake: IV 100 115 50 Zosyn 3.375 gm In Dextrose 5% 100 50 50 in Water 50 ml @ 100 mls/hr IV Q6H [facility] Rx#:[id number] Oral 1120 400 Output: Urine Catheter Amount 600 Void Amount 25 650 250 Other: Meal Dinner Percent of Meal Consumed 25% Feeding Ability Assist with Tray Set Up Urine Appearance Hematuria Urine Color Blood Tinged Blood Tinged Blood Tinged Stool Size Small Small Small Stool Color Brown Brown Brown Stool Consistency Loose Loose Loose # Voids 1 # Bowel Movements 1 1 1 OBJ DATA Labs 06/05/22 05:24 06/05/22 05:24 Labs: Abnormal Lab Results 06/05/22 06/05/22 06/04/22 05:24 05:24 10:50 WBC RBC 2.94 L Hgb 8.2 L Hct 26.7 L MCHC 30.7 L RDW 14.7 H Immature Gran % (Auto) 1.1 H Lymph % (Auto) 12.7 L Lymph # (Auto) 1.11 L Lymphocytes % Eosinophils % (Manual) Immature Gran # 0.10 H RBC Morphology Polychromasia Hypochromasia Anisocytosis Ovalocytes POC pCO2 POC pO2 POC HCO3 POC ABG Base Excess ABG Lactic Acid Potassium Carbon Dioxide Anion Gap BUN 6 L Glucose Calcium Phosphorus Iron 13 L Transferrin % Sat 5 L Lactate Dehydrogenase 301 H NT-Pro-B Natriuret Pep Total Protein Albumin Procalcitonin 06/04/22 06/04/22 06/04/22 05:07 05:07 05:07 WBC 13.6 H RBC 2.99 L Hgb 8.5 L Hct 27.5 L MCHC 30.9 L RDW 15.1 H Immature Gran % (Auto) Lymph % (Auto) Lymph # (Auto) Lymphocytes % 7 L Eosinophils % (Manual) 11 H Immature Gran # RBC Morphology Abnormal A Polychromasia Occ A Hypochromasia 1+ A Anisocytosis 1+ A Ovalocytes Occ A POC pCO2 POC pO2 POC HCO3 POC ABG Base Excess ABG Lactic Acid Potassium 3.0 L Carbon Dioxide Anion Gap BUN Glucose Calcium 8.5 L Phosphorus 2.3 L Iron Transferrin % Sat Lactate Dehydrogenase 264 H NT-Pro-B Natriuret Pep 2546.0 H Total Protein Albumin Procalcitonin 11.07 H 06/04/22 06/03/22 06/03/22 04:33 10:08 05:18 WBC RBC Hgb Hct MCHC RDW Immature Gran % (Auto) Lymph % (Auto) Lymph # (Auto) Lymphocytes % Eosinophils % (Manual) Immature Gran # RBC Morphology Polychromasia Hypochromasia Anisocytosis Ovalocytes POC pCO2 34.0 L 34.7 L POC pO2 72 L 73 L POC HCO3 21.6 L POC ABG Base Excess -3.0 L ABG Lactic Acid 0.4 L Potassium Carbon Dioxide Anion Gap BUN Glucose Calcium Phosphorus Iron Transferrin % Sat Lactate Dehydrogenase NT-Pro-B Natriuret Pep Total Protein Albumin Procalcitonin 37.51 H 06/03/22 05:17 WBC RBC Hgb Hct MCHC RDW Immature Gran % (Auto) Lymph % (Auto) Lymph # (Auto) Lymphocytes % Eosinophils % (Manual) Immature Gran # RBC Morphology Polychromasia Hypochromasia Anisocytosis Ovalocytes POC pCO2 POC pO2 POC HCO3 POC ABG Base Excess ABG Lactic Acid Potassium Carbon Dioxide 19 L Anion Gap 17.0 H BUN Glucose 109 H Calcium Phosphorus Iron Transferrin % Sat Lactate Dehydrogenase 265 H NT-Pro-B Natriuret Pep Total Protein 5.8 L Albumin 3.1 L Procalcitonin Meds: Medications Albuterol/Ipratropium (Ipratropium/Albuterol 3 Ml Ampul.Neb) 3 ml NEB Q4HP PRN PRN Reason: Shortness Of Breath Last Admin: 06/05/22 21:00 Dose: 3 ml Amiodarone HCl (Amiodarone Hcl 200 Mg Tablet) 100 mg PO [facility] Last Admin: 06/05/22 20:42 Dose: 100 mg Amlodipine Besylate (Amlodipine 5 Mg Tablet) 5 mg PO QDAY [facility] Last Admin: 06/05/22 08:14 Dose: 5 mg Apixaban (Apixaban 5 Mg Tablet) 5 mg PO BID [facility] Last Admin: 06/05/22 20:44 Dose: 5 mg Atorvastatin Calcium (Atorvastatin 40 Mg Tablet) 80 mg PO [facility] Last Admin: 06/05/22 20:44 Dose: 80 mg Buspirone HCl (Buspirone 15 Mg Tablet) 15 mg PO BID [facility] Last Admin: 06/05/22 20:42 Dose: 15 mg Carvedilol ([facility] 6.25 Mg Tablet) [facility] Last Admin: 06/05/22 17:28 Dose: 6.25 mg Chlorhexidine Gluconate (Chlorhexidine Gluconate 1 Ml Oral.Ellen) 15 ml SWABMOUTH BID [facility] Last Admin: 06/05/22 20:45 Dose: Not Given Duloxetine HCl (Duloxetine 30 Mg Capsule) 60 mg PO DAILY [facility] Last Admin: 06/05/22 08:14 Dose: 60 mg Gabapentin (Gabapentin 100 Mg Capsule) 200 mg PO BID [facility] Last Admin: 06/05/22 20:44 Dose: 200 mg Piperacillin Sod/Tazobactam (Sod 3.375 gm/ Dextrose) 50 mls @ 100 mls/hr IV Q6H [facility]; Protocol Last Infusion: 06/06/22 06:19 Dose: Infused Acetaminophen (Ofirmev) 650 mg in 65 mls @ 130 mls/hr IV Q6HP PRN; Protocol PRN Reason: PAIN/FEVER > 101 Last Infusion: 06/06/22 03:10 Dose: Infused Levothyroxine Sodium (Levothyroxine Sodium 112 Mcg Tablet) 112 mcg PO QDAY [facility] Last Admin: 06/05/22 08:15 Dose: 112 mcg Lidocaine (Lidocaine Patch) 1 patch TOPICAL DAILY@1000 [facility] Last Admin: 06/05/22 11:53 Dose: Not Given Lorazepam (Lorazepam 2 Mg/Ml Vial) 0.5 mg IV Q4-6HP PRN PRN Reason: ANXIETY/SEDATION Memantine (Memantine 10 Mg Tablet) 10 mg PO BID [facility] Last Admin: 06/05/22 20:44 Dose: 10 mg Methocarbamol (Methocarbamol 500 Mg Tablet) 500 mg PO TIDP PRN PRN Reason: spasm Last Admin: 06/05/22 21:18 Dose: 500 mg Metoprolol Tartrate (Metoprolol Tartrate 5 Mg/5 Ml Vial) 5 mg IV Q5M PRN PRN Reason: Tachyarrhythmias Montelukast Sodium (Montelukast 10 Mg Tablet) 10 mg PO HS [facility] Last Admin: 06/05/22 20:44 Dose: 10 mg Nortriptyline HCl (Nortriptyline 25 Mg Capsule) 50 mg PO HS [facility] Last Admin: 06/05/22 20:43 Dose: 50 mg Olanzapine (Olanzapine 5 Mg Tablet) 5 mg PO HS PRN PRN Reason: Agitation Last Admin: 06/03/22 21:00 Dose: 5 mg Ondansetron HCl (Ondansetron 4 Mg/2 Ml Vial) 4 mg IV Q4-6HP PRN; Protocol PRN Reason: Nausea And Vomiting [facility]oprazole S[facility] ([facility] 40 Mg Packet) [facility] Admin: 06/06/22 06:53 Dose: 40 mg Promethazine HCl (Promethazine 25 Mg/Ml Vial) 12.5 mg IV Q4-6HP PRN; Protocol PRN Reason: Nausea And Vomiting Last Admin: 06/03/22 20:36 Dose: 12.5 mg Quetiapine Fumarate (Quetiapine 25 Mg Tablet) 25 mg PO QHS [facility] Last Admin: 06/05/22 20:44 Dose: 25 mg Ropinirole HCl (Ropinirole 1 Mg Tablet) 2 mg PO QHS [facility] Last Admin: 06/05/22 20:43 Dose: 2 mg Sodium Chloride (0.9 % Sodium Chloride 10 Ml Syringe) 10 ml IV UD PRN PRN Reason: FLUSH Last Admin: 06/06/22 05:39 Dose: 10 ml Sodium Chloride (0.9 % Sodium Chloride 10 Ml Syringe) 10 ml IV Q12 [facility] Last Admin: 06/05/22 20:45 Dose: 10 ml Trazodone HCl (Trazodone Hcl 50 Mg Tablet) 50 mg PO HS [facility] Last Admin: 06/05/22 20:44 Dose: 50 mg A/P Narrative A/P Narrative: Assessment: *Acute hypoxic respiratory failure: 2/2 CAP & Pleural Effusion & ??CHF w/e xacerbation: -Intubated (06/01); extubated (06/03) -on room air *PNA(CAP): -flu/covid neg -PCT improving *Severe Sepsis: leukocytosis now resolved,no bandemia - *Right pleural effusion: *??Acute on chronic diastolic CHF: -echo from March with good EF, with some diastolic dysfxn *Paroxysmal atrial fibrillation: *Encephalopathy, metabolic: icu delerium added seroquel. now improving *Likely underlying Dementia vs MCI: pt on memantine at home *FAUSTINO on CKD III: improved *Metabolic acidosis: improved *Hypokalemia/hypophos: improved *Anemia, acute on chronic: monitor *HTN/HLD: *Hypothyroidism: tsh wnl *Generalized weakness/deconditioning: *h/o chronic back pain: *Depression/anxiety: *RLS worsened: check tsh/iron studies P: -Zosyn deescalate pending final BC/SC, MRSA screen neg -prn O2 supp and wean as able -IS/Acapella -monitor renal fxn/uop/fluid balance -prn IV lasix -cont Norvasc -f/u cbc w/ auto diff in the morning to trend WBC, monitor chem and replace electorlytes prn -cont Amiodarone -cont statin -Continue psych meds, prn ativan -PT/OT -CM for placement needs -ppx: Eliquis / Protonix Code status: Dental Mechanic Spent With Patient Time: Total time spent is greater than 50% in coordination of care (as documented) at patient's floor/unit and/or counseling patient: Subsequent: Total time with patient: 35 - 49 minutes QUALITY Stroke Symptom Onset Unknown: No VTE Deep Vein Thrombosis/Pulmonary Embolism Present on Admission: No Restraints Restraint In Place: No
[2022-06-06] MEDS: LEVOTHYROXINE SODIUM 112 MCG TABLET PO SCH (08:25)
[2022-06-06] MEDS: APIXABAN 5 MG TABLET PO SCH (08:25)
[2022-06-06] MEDS: GABAPENTIN 100 MG CAPSULE PO SCH (08:25)
[2022-06-06] MEDS: CARVEDILOL 6.25 MG TABLET PO SCH (08:25)
[2022-06-06] MEDS: amLODIPine 5 MG TABLET PO SCH (08:25)
[2022-06-06] MEDS: CHLORHEXIDINE GLUCONATE 1 ML ORAL.SOL SWABMOUTH SCH (08:25)
[2022-06-06] MEDS: busPIRone 15 MG TABLET PO SCH (08:26)
[2022-06-06] MEDS: MEMANTINE 10 MG TABLET PO SCH (08:26)
[2022-06-06] MEDS: 0.9 % SODIUM CHLORIDE 10 ML SYRINGE IV SCH (08:26)
[2022-06-06] MEDS: DULoxetine 30 MG CAPSULE PO SCH (08:26)
[2022-06-06] MEDS: METHOCARBAMOL 500 MG TABLET PO PRN (08:34)
[2022-06-06] MEDS: LIDOCAINE PATCH TOPICAL SCH (12:30)
== END 2022-06-06 13:18 | disposition home health service (06) | DRG 871 ==
LOC: ED 19:39 → ICU 06-02 03:23 → MEDSUR 06-05 16:56
PROVIDERS: ADMIT Internal Medicine; ATTEND Internal Medicine